=== PATIENT | male | born 1970 | race Caucasian/White ===

== ENCOUNTER 2020-03-19 16:26 | Emergency (ER) | payer MEDICAID, SELFPAY ==
[2020-03-19 16:45] VITALS: BP 162/89; PULSE 80; RESP 18; TEMP 37.7; O2SAT 98
--- NOTE | 2020-03-19 17:13 | ED.URI ---
HPI - URI/Sore Throat General Chief Complaint: Upper Respiratory Infection Stated Complaint: possible sinus infection Time Seen by Provider: 03/19/20 17:05 Source: patient and RN notes reviewed Mode of arrival: ambulatory Limitations: no limitations History of Present Illness HPI Narrative: 50-year-old male who presents to [facility] care accompanied by due to patient's hearing impairment with complaints of sore throat since Tuesday evening. Patient also states some discomfort to his right ear and extreme fatigue with some feeling of being feverish last night but did not take his temperature. Patient states that he had a negative COVID test one month ago. MD elicited complaint: sore throat and other (right ear pain) Pertinent past history: other (bronchitis) Onset (ago): day(s) (2) Consistency: constant Severity: moderate Pain scale (0-10): 5 Description of mucous: clear Able to tolerate fluids by mouth: Yes Exacerbating factors: swallowing Relieving factors: other (tramadol helps) Associated symptoms: fever, ear pain and other (fatigue) Treatments prior to arrival: other (tramadol for pain) Related Data Home Medications Medication Instructions Recorded Confirmed albuterol sulfate [ProAir HFA] 2 puff INHALATION QID PRN 03/19/20 03/19/20 meloxicam 7.5 mg PO DAILY 03/19/20 03/19/20 omeprazole 40 mg PO DAILY 03/19/20 03/19/20 ranitidine HCl 150 mg PO BID 03/19/20 03/19/20 tramadol 50 mg PO TID 03/19/20 03/19/20 Allergies Allergy/AdvReac Type Severity Reaction Status Date / Time banana Allergy Anaphylaxis Verified 03/19/20 16:57 morphine Allergy Swelling Verified 03/19/20 16:57 Review of Systems Review of Systems: Narrative: CONSTITUTIONAL: Positive fever, chills, or sweats. EYES: Denies visual changes, redness, or discharge. ENT positive rhinorrhea, nasal congestion, sore throat, right otalgia. CARDIOVASCULAR: Denies chest pain, palpitations, or edema. RESPIRATORY: Denies cough or dyspnea. GASTROINTESTINAL: Denies abdominal pain, nausea, vomiting, or diarrhea. GENITOURINARY: Denies dysuria or hematuria. SKIN: Denies rash or itching. MUSCULOSKELETAL: Denies back pain, joint pain, or myalgia. NEUROLOGIC: Denies headache, numbness, or weakness. PSYCHIATRIC: Denies anxiety or depression. All systems reviewed & are unremarkable except as noted in HPI and below PMFSH Past Medical History Medical History (Updated 03/19/20 @ 18:28 by Loren Stauffer NP) Bronchitis non alcoholic Cirrhosis of liver GERD (gastroesophageal reflux disease) Surgical History Surgical History (Updated 03/19/20 @ 17:21 by Loren Stauffer NP) History of cholecystectomy History of tonsillectomy Social History Social History (Updated 03/19/20 @ 18:27 by Loren Stauffer NP) Smoking status: Never smoker Alcohol intake: never Substance use: never Living arrangements: with family Gender identity (if verbalized by the patient): Male Comments At time of signature, agree with nursing past medical, surgical, social history. There is no relevant family history pertinent to the presenting complaint Exam Narrative: Exam Narrative: GENERAL: Well-appearing, well-nourished, and in no acute distress. HEAD: Normocephalic, atraumatic. EYES: PERRLA and EOMI. ENT: Nares red, clear rhinorrhea no epistaxis. Mucous membranes moist.TM's normal with good light reflex, throat, red swollen,uvula red and swollen with some post nasal drainage noted NECK: Supple. lymphadenopathy CHEST: Clear to auscultation. No respiratory distress.SAO2 98% on room air HEART: Regular rate and rhythm. No murmur heard. Normal peripheral pulses. ABDOMEN: Soft, nontender, nondistended, normal active bowel sounds. EXTREMITIES: Normal range of motion. No edema. SKIN: Warm, dry, no rash. NEURO: No focal deficits. Alert and oriented x3. Course Vital Signs Vital signs: Vital Signs Temperature 37.7 C H 03/19/20 16:45 Pulse Rate 80 03/19/20 16:45 Respira
== END 2020-03-19 17:37 | disposition home or self-care (01) ==
PROVIDERS: Emergency Provider Registered Nurse
DX: J02.0 Streptococcal pharyngitis (principal); Z20.828 Contact with and (suspected) exposure to other viral communicable diseases; K21.9 Gastro-esophageal reflux disease without esophagitis; K74.60 Unspecified cirrhosis of liver
CPT/HCPCS: 87804; 87880; 99213; G0463

== ENCOUNTER 2024-06-30 08:17 | Emergency (ER) | payer MEDICARE, SELFPAY ==
--- OUTSIDE RECORDS SUMMARY | 2024-06-30 08:22 | XMS_ITS | Clinical Summary ---
Author Organization [facility] Address [address] [place] [address] Phone Care Team Providers Care Sheriff'S Sergeant Name Role Phone Renzo Mishra MD Primary Care Provider [phone] Allergies Active Allergy Reactions Criticality Noted Date Comments Morphine Swelling 09/23/2016 Medications furosemide (LASIX) 20 MG Tablet Take 20 mg by mouth daily. Active meloxicam (MOBIC) 7.5 MG Tablet Take 1 Tab by mouth daily. 10 Tab 3 09/23/2016 Active Social History Tobacco Use Types Packs/Day Years Used Date Smoking Tobacco: Never Alcohol Use Standard Drinks/Week Comments No 0 (1 standard drink = 0.6 oz pur e alcohol) Sex and Gender Information Value Date Recorded Sex Assigned at Not on file Legal Sex Male 7:51 PM CDT Gender Identity Not on file Sexual Orientation Not on file Last Filed Vital Signs Vital Sign Reading Time Taken Comments Blood Pressure 144/93 09/23/2016 7:12 PM CDT Pulse 75 09/23/2016 7:12 PM CDT Temperature 36.6 C (97.8 F) 09/23/2016 7:12 PM CDT Respiratory Rate 18 09/23/2016 7:12 PM CDT Oxygen Saturation 98% 09/23/2016 7:12 PM CDT Inhaled Oxygen Concentration - - Weight 144.2 kg (318 lb) 09/23/2016 7:12 PM CDT Height 170.2 cm (5' 7 ) 09/23/2016 7:12 PM CDT Body Mass Index 49.81 09/23/2016 7:12 PM CDT Plan of Treatment Health Maintenance Due Date Last Done Comments Hepatitis C Virus (HCV) Screening 1970 TdaP Immunization 1969 Hepatitis B Immunization (3 of 3 - 19+ 3-dose series) 09/01/2011 05/20/2011, 03/02/2011 Colonoscopy 2014 Colorectal Cancer Screening 09/24/2016 Cologuard 2019 Immunochemical Fecal Occult Blood 2019 09/23/2016 Pneumococcal Immunization (5 0+ years) (1 of 1 - PCV) 2019 Zoster Immunization (1 of 2) 2019 Influenza Immunization (#1) 2024 SARS-COV-2 Immunization (3 - 2023- season) 2024 08/23/2020, 07/26/2020 PSA Discussion 01/29/2024 Respiratory Syncytial Virus (RSV) Immunization (Adult) (1 - 1-dose 75+ series) 01/29/2044 Meningococcal Immunization (ACWY) Aged Out No longer eligible b ased on patient's age to complete this topic Pneumococcal Immunization Combined Aged Out No longer eligible b ased on patient's age to complete this topic Rotavirus Immunization Aged Out No lo nger eligible based on patient's age to complete this topic Procedures Procedure Name Priority Date/Time Associated Diagnosis Comments STOOL, OCCULT BLOOD, DIAGNOSTIC, VIA GUAIAC STAT 09/23/2016 10:00 PM CDT from Last 3 Months or Most Recently Relevant to Health Maintenance Results * Stool, Occult Blood, Diagnostic (09/23/2016 10:00 PM CDT) OCCULT BLOOD DIAG, GI BLEED Negative Negative 09/23/2016 10:17 PM CDT [facility] Stool specimen (specimen) STOOL SPECIMEN / Unknown Non-Phlebotomy Collection / Unknown 09/23/2016 10:00 PM CDT 09/23/2016 10:10 PM CDT us Herman Marino MD BODY FLUIDS & STOOLS ORDERABLES Final Result [facility] [address] [place] [address] from Last 3 Months or Most Recently Relevant to Health Maintenance Insurance MEDICAID [employer] [facility] Care Teams Sheriff'S Sergeant Relationship Specialty Start Date End Date Renzo Mishra MD [address] [place] [id number] PCP - General Family Medicine 09/23/16
--- OUTSIDE RECORDS SUMMARY | 2024-06-30 08:22 | XMS_ITS | Encounter Summary ---
Author Organization [facility] Address [address] [place] [address] Care Team Providers Care Transport Driver Name Role Phone Renzo Mishra MD Primary Care Provider [phone] Reason for Visit * Reason Onset Date Comments Pre-op Instructions 08/11/2021 Encounter Details Date Type Department Care Team (Late st Contact Info) Description 08/11/2021 Patient Outreach [facility] [address] [place] [id number] Samra Garcia RN Pre-op Instructions Social History Tobacco Use Types Packs/Day Years Used Date Smoking Tobacco: Never Smokeless Tobacco: Never Alcohol Use Standard Drinks/Week Comments Not Currently 0 (1 standard drink = 0.6 oz pur e alcohol) rare, 1-2 occasions/year Sex and Gender Information Value Date Recorded Sex Assigned at Not on file Gender Identity Not on file Sexual Orientation Not on file documented as of this encounter Plan of Treatment Upcoming Encounters Date Type Department Care Team (Late Contact Info) Description 08/24/2024 9:30 AM CDT Office Visit [facility] [address] [facility] [place] [phone] Carrie Milner PA-C [address] [facility] [place] [phone] 10/15/2024 8:00 AM CDT Office Visit [facility] [address] [facility] [place] [address] Harish Pedro MD [address] [place] [address] [place] [address] documented as of this encounter Goals Goal Patient Goal Type Associated Problems Recent Progress Patient-Stated? Author Medication Management General On track( 024 9:26 AM HOME HEALTH OUTREACH COORDINATOR) Modesto Badillo, RN Note: Expected end date: Interventions: Take all medications as prescribed Let your doctor know right away about any changes in your medications Make sure to request a refill of your medication at least one week prior to your last dose documented as of this encounter Visit Diagnoses Not on filedocumented in this encounter Care Teams Transport Driver Relationship Specialty Start Date End Date Renzo Mishra MD [address] [place] [phone] PCP - General 02/12/19 documented as of this encounter
--- OUTSIDE RECORDS SUMMARY | 2024-06-30 08:22 | XMS_ITS | Clinical Summary ---
Author Organization [facility] Address [address] [place] [address] Care Team Providers Care Die Storage Clerk Name Role Phone Renzo Mishra MD Primary Care Provider [phone] Allergies Active Allergy Reactions Criticality Noted Date Comments Banana Other (See comments) High Reaction: Anaphylaxis, Morphine Other (See comments) High Reaction: Anaphylaxis, Medications doxycycline (VIBRAMYCIN) 100 mg capsule Take 1 tablet/capsule (100 mg total) by mouth 2 (two) times a day. 20 capsule 8 Active cyclobenzaprine (FLEXERIL) 10 mg tablet Take 1 tablet (10 mg total) by mouth nightly Active hydroCHLOROthiaz neema (HYDRODIURIL) 12.5 mg tabletIndication s:patient states taking med 3-4 days per week Take 1 tablet (12.5 mg total) by mouth daily Active aspirin 81 mg chewable tablet Take 81 mg by mouth daily Active fluticasone propionate (FLONASE) 50 mcg/actuation nasal spray Fluticasone Propionate 50 MCG/ACT Nasal Suspension QTY: 3 inhaler Days: 90 Refills: 1 Written: 11/27/19 Patient Instructions: 2 sprays each nostril once daily 0 Active nadoloL (CORGARD) 20 mg tablet Take 1 tablet (20 mg total) by mouth daily 0 Active omeprazole (PriLOSEC) 40 mg capsule 40 mg daily 9 Active loratadine (CLARITIN) 10 mg tablet daily 0 Active meloxicam (MOBIC) 15 mg tablet TK 1 T PO D 0 Active raNITIdine (ZANTAC) 150 mg tablet 2 times daily 9 Active tiZANidine (ZANAFLEX) 4 mg tablet TK 1 T PO BID PRN 0 Active traMADoL (ULTRAM) 50 mg tablet TK 1 T PO UP TO TID PRF PAIN 0 Active gabapentin (NEURONTIN) 300 mg capsule Take 1 capsule (300 mg total) by mouth nightly 90 capsule 1 0 Active Additional Information Patient not taking.Reported on 01/07/2024 lisinopril-hydro CHLOROthiazide (ZESTORETIC) 20-25 mg per tablet Take 1 tablet by mouth daily 1 Active GaviLyte-G 236-22.74-6.74 -5.86 gram solution 1 Active albuterol HFA (ProAir HFA) 90 mcg/actuation inhalerIndicatio ns:Bacterial upper respiratory infection Inhale 2 puffs every 4 (four) hours as needed for wheezing or shortness of breath 1 each 2 Active predniSONE (DELTASONE) 20 mg tabletIndication s:Rib pain Take 2 tablets (40 mg) by mouth daily 10 tablet 4 Active cyclobenzaprine (FLEXERIL) 10 mg tabletIndication s:Rib pain Take 1 tablet (10 mg total) by mouth 2 (two) times a day as needed (pleurisy) 20 tablet 4 Active Active Problems Problem Noted Date Diagnosed Date Herniation of intervertebral disc 08/01/2019 Overview (12/24/2019): Note: Unchanged Stenosis of lumbosacral spine 12/21/2018 Overview (12/24/2019): Note: Unchanged Persistent headaches 02/16/2018 Allergic rhinitis due to pollen 10/16/2015 Overview (12/24/2019): Note: Unchanged Carpal tunnel syndrome 10/16/2015 Overview (12/24/2019): Note: Unchanged Cervical radiculopathy 10/16/2015 Overview (12/24/2019): Note: Unchanged Gastroesophageal reflux disease without esophagi tis 10/16/2015 Overview (12/24/2019): Note: Unchanged Lumbago 10/16/2015 Overview (12/24/2019): Note: Unchanged Nonalcoholic steatohepatitis 10/16/2015 Overview (12/24/2019): Note: Unchanged Pure hypercholesterolemia 10/16/2015 Overview (12/24/2019): Note: Unchanged Esophageal varices 05/06/2015 Overview (12/24/2019): 04/23/15 EGD: small esophageal varices, mild PHG 05/22/19 EGD: moderate varices, moderate PHG --> nadolol 20 mg/d started Liver cirrhosis secondary to ORTIZ (CMS/HCC) 12/08 Overview (12/24/2019): 06/19/09 liver biopsy (wedge bx during [facility], read here): lots of fibrosis but subcapsular; 40% steatosis, no ballooning or MDBs; inadequate specimen 08/22/09 CT: purged from MT 08/22/09 EGD: no varices 11/06/10 CT: lobular surface, no focal lesions, patent vessels, no ascites 12/14/11 EGD: no varices, mild PHG/erythema, bx negative for H pylori 10/10/12 EGD: no varices 04/23/15 CT: nodular liver, no focal lesions, patent vessels, no ascites 04/21/17 CT: shrunken nodular liver, no change in 1 cm caudate lobe lesion seen in 2010, no other focal lesions mcm 05/22/19 CT: nodular liver, no change in lesion seen in 2010, no other focal lesions, patent vessels, no ascites mcm Colon adenomas 07/27/2013 Overview (12/24/2019): Strong FH colon cancer (sister and mother age < 50). Needs 2 day prep. 08/22/09 colonoscopy: tubular adenoma removed from cecum 07/27/13 colonoscopy: sessile serrated polyp removed; poor prep, repeat in 6 months recommended 04/23/15 colonoscopy: sessile serrated polyp removed from rectum. Poor prep again. Repeat in 1 yr. 04/21/17 colonoscopy: multiple small polyps removed, no adenomas 05/22/19 colonoscopy: poor prep, multiple small descending colon SSA and hyperplastic polyps, repeat in 1 year. mcm Hypertension 11/22/2011 Benign essential hypertension 09/07/2010 Overview (12/24/2019): Note: Unchanged Elevation of level of transa minase and lactic acid dehydrogenase (LDH) 09/07/2010 Overview (12/24/2019): Note: Unchanged Obesity 09/07/2010 Overview (12/24/2019): Note: Unchanged Surgical History Surgery Date Site/Laterality Comments CHOLECYSTECTOMY Medical History Medical History Date Comments Cholecystitis GERD (gastroesophageal reflux disease) Hypertension Cirrhosis (HCC) Family History Medical History Relation Name Comments Heart attack Father Heart disease Father Heart failure Father Cancer Mother Heart attack Mother Heart disease Mother Heart failure Mother Cancer Sister Relation Name Status Comments Father Mother Sister Social History Tobacco Use Types Packs/Day Years Used Date Smoking Tobacco: Never Smokeless Tobacco: Never Tobacco Cessation:Counseling Given: Not Answered Alcohol Use Standard Drinks/Week Comments Yes 0 (1 standard drink = 0.6 oz pur e alcohol) social drinker Personal Safety Answer Date Recorded Getting School Help Needed Not on file 07/03 Sex and Gender Information Value Date Recorded Sex Assigned at Not on file Legal Sex Male 4:35 PM CLINICAL PHARMACY MANAGER Gender Identity Not on file Sexual Orientation Not on file Obstetrics History Last Filed Vital Signs Vital Sign Reading Time Taken Comments Blood Pressure 132/78 01/07/2024 10:03 AM CDT Pulse 69 01/07/2024 10:03 AM CDT Temperature 36.7 C (98 F) 01/07/2024 10:03 AM CDT Respiratory Rate 20 01/07/2024 10:0 3 AM CDT Oxygen Saturation 98% 01/07/2024 10: 03 AM CDT Inhaled Oxygen Concentration - - Weight 148.9 kg (328 lb 4.8 oz) 024 10:03 AM CDT Height 170.2 cm (5' 7 ) 01/14/2022 5:22 PM CDT Body Mass Index 51.42 01/14/2022 5:22 PM CDT Plan of Treatment Health Maintenance Due Date Last Done Comments Colon Cancer Screening-Colonoscopy 1969 Depression Screening 1969 Hepatitis C Screening 1969 Prostate Cancer Screening-PSA 1969 DTaP/Tdap/Td Vaccine (1 - Tdap) 01/29/1980 Regular Well Visit/Exam 18-64 1987 Pneumococcal vaccine <65 (1 of 2 - PCV) 01/29/1988 Zoster Vaccine (1 of 2) 2019 Covid-19 Vaccine (3 - season) 2024, 07/26/2020 Influenza Vaccine (#1) 2024 05/20/2010 Insurance [facility] MEDICARE MEDICARE MEDICARE Care Teams Die Storage Clerk Relationship Specialty Start Date End Date Renzo Mishra MD PCP - General Family Medicine 12/21/17
--- OUTSIDE RECORDS SUMMARY | 2024-06-30 08:22 | XMS_ITS | Clinical Summary ---
Author Organization [facility] Address [address] [place] [address] Care Team Providers Care Blast Furnace Supervisor Name Role Phone Renzo Mishra MD Primary Care Provider [phone] [facility],non-owned Affiliates and Associated Physician Practices is amultiple site organization consisting of ambulatory clinics and hospital sitesin [place], [place], [place] and [place]. This disclosure is being madepursuant to the Care Everywhere program and may not contain all information available regarding this patient. Last updated 18.[facility] Allergies Active Allergy Reactions Criticality Noted Date Comments Banana Other Low 11/22/2011 Ab Morphine Skin Reactions,Other Medium 11/22/2011 Edema Medications * Be aware that medications may not be up to date on this document. Alwaysverify current medications with the patient. Medication Sig Dispensed Refills Start Date End Date Status albuterol HFA (PROVENTIL;VENTOL IN;PROAIR) 108 (90 Base) MCG/ACT inhaler Inhale 2 (two) puffs by mouth once daily as needed 08/27/2017 Active aspirin (ASPIRIN) 81 MG chew tablet Take 1 (one) tablet by mouth once daily Active multivitamin daily tablet Take 1 (one) tablet by mouth daily with food Active loratadine (CLARITIN) 10 MG tablet Take 1 (one) tablet by mouth once daily 02/04/2021 Active Other Liver Aid Active nadolol (Corgard) 20 MG tablet Take 1 (one) tablet by mouth once daily 30 tablet 11 10/17/2023 Active Additional Information Patient not taking.Reported on 04/27/2024 omeprazole (PriLOSEC) 20 MG capsule Take 1 (one) capsule by mouth once daily 30 capsule 11 10/17/2023 Active rifAXIMin (Xifaxan) 550 MG tablet Take 1 (one) tablet by mouth 2 times daily 30 tablet 3 11/04/2023 Active Additional Information Patient not taking.Reported on 04/27/2024 lactulose (Chronulac) 10 GM/15ML solution Take 30 mL by mouth 3 times daily Titrate for 2-4 bowel movements per day 2700 mL 11 11/14/2023 Active spironolactone (Aldactone) 25 MG tablet TAKE 2 TABLETS BY MOUTH ONCE DAILY 180 tablet 1 01/16/2024 Active gabapentin (Neurontin) 300 MG capsule TAKE ONE CAPSULE BY MOUTH ONCE DAILY 30 capsule 3 11/04/2023 11/03/2024 Active lisinopril (Prinivil; Zestril) 20 MG tablet Take 1 (one) tablet by mouth once daily 03/12/2024 Active traMADol (Ultram) 50 MG tablet Take 1 (one) tablet by mouth 3 times daily as needed for Pain 03/29/2024 Active Active Problems Problem Noted Date Diagnosed Date Hepatic encephalopathy 11/01/2023 Overview (11/04/2023): New onset October 2024, admitted with confusion, lactulose and rifaximin started Obstructive sleep apnea syndrome 05/16/2020 Overview (11/04/2023): Note: Unchanged - CPAP Stenosis of lumbosacral spine 12/21/2018 Overview (02/16/2021): Note: Unchanged GERD (gastroesophageal reflux disease) 8 Overview (05/22/2019): Overview: 10/10/13 EGD: [place] class A GERD 05/22/19 EGD: no GERD changes on omeprazole 40 qd Persistent headaches 02/16/2018 Cervical radiculopathy 10/16/2015 Overview (02/16/2021): Note: Unchanged Hypercholesterolemia 10/16/2015 Esophageal varices 05/06/2015 Overview (05/22/2019): Overview: 04/23/15 EGD: small esophageal varices, mild PHG 05/22/19 EGD: moderate varices, moderate PHG --> nadolol 20 mg/d started Obesity 12/26/2013 Liver cirrhosis secondary to MASH 12/26/2013 Overview (11/29/2023): 06/19/09 liver biopsy (wedge bx during [place], [...] seen in 2010, no other focal lesions [facility] 05/22/19 CT: nodular liver, no change in lesion seen in 2010, no other focal lesions, patent vessels, no ascites mcm 08/18/21 CT: shrunken nodular liver, no focal lesions, patent vessels, no ascites mcm 10/13/22 [place] ([place]): steatosis, no mention of focal lesions or ascites 11/28/23 CT: shrunken nodular liver, no focal lesions, patent vessels, no ascites mcm Colon adenomas 07/27/2013 Overview (08/21/2021): Strong FH colon cancer (sister and mother [...] and hyperplastic polyps, repeat in 1 year. [facility] 08/18/21 colonoscopy: no adenomas, repeat in 3-5 years Hypertension 11/22/2011 Encounters Date Type Department Care Team Description 05/31/2024 Travel 04/27/2024 10:50 AM CAUSTIC STRENGTH INSPECTOR - 04/27/2024 11:59 PM CAUSTIC STRENGTH INSPECTOR Hospital Encounter [facility] [address] [place] [address] Discharge Disposition: Home or Self Care 04/27/2024 9:30 AM CAUSTIC STRENGTH INSPECTOR Office Visit [facility] - GI [address] [facility] [facility] [place] [address] Jonny Cardona III, MD McNiell, Allison PA-C Class 3 severe obesity due to excess calories with serious comorbidity and body mass index (BMI) of 50.0 to 59.9 in adult (HCC) (Primary Dx); Hypothyroidism, unspecified type; Screening for diabetes mellitus; Liver cirrhosis secondary to MASH; Gastroesophageal reflux disease without esophagitis; Stenosis of lumbosacral spine 04/27/2024 Travel from Last 3 Months Immunizations Name Administration Dates Next Due INFLUENZA VACCINE, TRIV. (AF LURIA, FLUZONE TRIVALENT; 6MO+) (IIV3) 05/20/2010 Family History Medical History Relation Name Comments CAD (Coronary Artery Disease) Father Diabetes Father dm; Status: Dec eased High Cholesterol Father Kidney Disease Father Asthma Mother CAD (Coronary Artery Disease) Mother COPD - Chronic Obstructive P ulmonary Disease Mother Cancer Mother Colon Cancer - Colon Mother Status: Alive Diabetes Mother High Cholesterol Mother Hypertension Mother Cancer - Other Sister 1 High Cholesterol Sister 1 Hypertension Sister 1 Status: Alive Glaucoma Sister 2 Other - Hepatic/Liver Sister 2 Arthritis Sister 3 Rheumatoid Cancer Sister 4 Unsure primary site--wide spread mets Relation Name Status Comments Father Mother Sister 1 Sister 2 Sister 3 Sister 4 Social History Tobacco Use Types Packs/Day Years Used Date Smoking Tobacco: Never Smokeless Tobacco: Never Tobacco Cessation:Counseling Given: Yes Alcohol Use Standard Drinks/Week Comments Not Currently 0 (1 standard drink = 0.6 oz pur e alcohol) AUDIT-C Answer Date Recorded Q1: How often do you have a drink containing alcohol? Never 11/03/2023 Q2: How many drinks containi ng alcohol do you have on a typical day when you are drinking? Patient does not drink Q3: How often do you have si x or more drinks on one occasion? Never 11/03/2023 Overall Financial Resource Strain (CARDIA) Answe r Date Recorded How hard is it for you to pa y for the very basics like food, housing, medical care, and heating? Not very hard 11/03/2023 [facility] - Occupational Stress Questionnaire Answer Date Recorded Do you feel stress - tense, restless, nervous, or anxious, or unable to sleep at night because your mind is troubled all the time - these days? Not at all 11/03/2023 Hunger Vital Sign Answer Date Recorded Within the past 12 months, y ou worried that your food would run out before you got the money to buy more. Never true 11/03/19 24 Within the past 12 months, t he food you bought just didn't last and you didn't have money to get more. Never true 11/03/2023 PRAPARE - Transportation Answer Date Re corded In the past 12 months, has l ack of transportation kept you from medical appointments or from getting medications? No 10/08 In the past 12 months, has l ack of transportation kept you from meetings, work, or from getting things needed for daily living? No 11/03/2023 Housing Stability Vital Sign Answer Kevin e Recorded In the last 12 months, was t here a time when you were not able to pay the mortgage or rent on time? No 11/03/2023 In the last 12 months, how many places have you lived? 1 11/03/2023 In the last 12 months, was t here a time when you did not have a steady place to sleep or slept in a custodial (including now)? No 11/03/2023 Sex and Gender Information Value Date Recorded Sex Assigned at Not on file Gender Identity Not on file Sexual Orientation Not on file Last Filed Vital Signs Vital Sign Reading Time Taken Comments Blood Pressure 148/75 04/27/2024 9:23 AM CAUSTIC STRENGTH INSPECTOR Pulse 77 04/27/2024 9:23 AM CAUSTIC STRENGTH INSPECTOR Temperature 37 C (98.6 F) 04/27/2024 9:23 AM CAUSTIC STRENGTH INSPECTOR Respiratory Rate 16 11/04/2023 11:37 AM CDT Oxygen Saturation 100% 04/27/2024 9:23 AM CAUSTIC STRENGTH INSPECTOR Inhaled Oxygen Concentration - - Weight 154.2 kg (340 lb) 04/27/2024 9:23 AM CAUSTIC STRENGTH INSPECTOR Height 167.6 cm (5' 6 ) 04/27/2024 9:23 AM CAUSTIC STRENGTH INSPECTOR Body Mass Index 54.88 04/27/2024 9:23 AM CAUSTIC STRENGTH INSPECTOR Plan of Treatment Upcoming Encounters Date Type Department Care Team (Late st Contact Info) Description 08/24/2024 9:30 AM CDT [facility] [address] [place] [phone] Carrie Milner PA-C [address] [facility] [place] [phone] 10/15/2024 8:00 AM CDT Office Visit [facility] - GI [address] [place] [phone] Harish Pedro MD [address] [facility] 2L [place] [address] Health Maintenance Due Date Last Done Comments COLOGUARD (AGES 45-75) - COLON CA SCREENING 1970 CT COLONOGRAPHY - COLON CA SCREENING 1970 FIT - COLON CA SCREENING 1970 FLEX SIG - COLON CA SCREENING 1970 MEDICARE AWV 12 MONTHS 1970 HIV SCREENING 01/29/1984 DTAP/TDAP/TD VACCINES (1 - Tdap) 01/29/1988 HEPATITIS B VACCINE (1 of 3 - 19+ 3-dose series) 01/29/1988 PNEUMOCOCCAL VACCINE 50+ (1 of 2 - PCV) 01/29/1988 ZOSTER VACCINE (1 of 2) 2019 COVID-19 VACCINE (3 - 2023- season) 2024 08/23/2020, 07/26/2020 INFLUENZA VACCINE (#1) 2024 05/20/2010 DEPRESSION SCREENING 05/09/2024 SCREENING FOR DIABETES 04/27/2027 , 11/28/2023, 11/04/2023, Additional history exists LIPID TESTING 04/27/2029 04/27/2024, 10/0 08/2018, 05/09/1998 COLON MONITORING 08/19/2031 08/18/2021, 04/2022, 05/22/2019, Additional history exists COLONOSCOPY - COLON CA SCREENING 08/19/2031 08/18/2021, 08/18/2021, 05/22/2019, Additional history exists Colorectal Cancer Screening 08/19/2031 HEPATITIS C SCREENING Completed 04/07/2015 HIB VACCINE Aged Out No longer eligi ble based on patient's age to complete this topic HPV VACCINE Aged Out No longer eligi ble based on patient's age to complete this topic MENINGOCOCCAL (Group B) VACCINE Aged Out No longer eligible based on patient's age to complete this topic MENINGOCOCCAL VACCINE Aged Out No raquel shanique eligible based on patient's age to complete this topic Goals Goal Patient Goal Type Associated Problems Recent Progress Patient-Stated? Author Medication Management General On track( 024 9:26 AM CAUSTIC STRENGTH INSPECTOR) No Modesto Jerez, RN Note: Expected end date: Interventions: Take all medications as prescribed Let your doctor know right away about any changes in your medications Make sure to request a refill of your medication at least one week prior to your last dose Procedures Procedure Name Priority Date/Time Associated Diagnosis Comments T4 FREE Routine 04/27/2024 12:04 PM CAUSTIC STRENGTH INSPECTOR Hypothyroidism, unspecified type TSH Routine 04/27/2024 12:04 PM CAUSTIC STRENGTH INSPECTOR Hypothyroidism, unspecified type LIPID PROFILE Routine 04/27/2024 12:04 PM CAUSTIC STRENGTH INSPECTOR Class 3 severe obesity due to excess calories with serious comorbidity and body mass index (BMI) of 50.0 to 59.9 in adult (HCC) HEMOGLOBIN A1C Routine 04/27/2024 12:04 PM CAUSTIC STRENGTH INSPECTOR Class 3 severe obesity due to excess calories with serious comorbidity and body mass index (BMI) of 50.0 to 59.9 in adult (HCC) Screening for diabetes mellitus ENDOSCOPY, COLON, SCREENING Routine 08/18/2021 11:37 AM CDT Colon adenomas HEPATITIS C ANTIBODY Routine 04/07/2015 3:28 PM CAUSTIC STRENGTH INSPECTOR from Last 3 Months or Most Recently Relevant to Health Maintenance Results * HEMOGLOBIN A1C (04/27/2024 12:04 PM CAUSTIC STRENGTH INSPECTOR) Hemoglobin A1c 4.3 <=5.6 % 04/27/2024 2:23 PM CAUSTIC STRENGTH INSPECTOR [facility] Estimated Average Glucose 77 mg/dL 04/27/2024 2:23 PM CAUSTIC STRENGTH INSPECTOR [facility] Comment: HbA1c Interpretation: Normal : < 5.7% Pre-diabetes: 5.7-6.4% Diabetes: Equal to or greater than 6.5% Test results diagnostic of diabetes should be repeated for confirmation. Treatment target values recommended by ADA and other clinical organizations should be used to evaluate metabolic control in patients. Reference: [place] Diabetes Association, Standards of Care in Diabetes -2020 In patients 70 years and older consider HbA1c target range of 7.0-7.5% (Reference: Hakeem Willett et al. JAMDA. 2012) The Sebia assay for the measurement of HbA1c is a National Glycohemoglobin Standardization Program (NGSP) certified method. Blood BLOOD SPECIMEN / Unknown Lab Venipuncture / Unknown 04/27/2024 12:04 PM CAUSTIC STRENGTH INSPECTOR 04/27/2024 12:53 PM CAUSTIC STRENGTH INSPECTOR Carrie Milner PA-C LAB - CHEMISTRY ORD ERABLES [address] [phone], [facility] [phone] * TSH (04/27/2024 12:04 PM CAUSTIC STRENGTH INSPECTOR) TSH 1.417 0.350 - 4.940 uIU/mL 04/27/2024 1:37 PM CAUSTIC STRENGTH INSPECTOR [facility] Blood BLOOD SPECIMEN / Unknown Lab Venipuncture / Unknown 04/27/2024 12:04 PM CAUSTIC STRENGTH INSPECTOR 04/27/2024 12:46 PM CAUSTIC STRENGTH INSPECTOR Carrie Milner PA-C LAB - CHEMISTRY ORD ERABLES [facility] [address] [place] [phone], [facility] [phone] * T4 FREE (04/27/2024 12:04 PM CAUSTIC STRENGTH INSPECTOR) T4 Free 0.9 0.7 - 1.5 ng/dL 04/27/2024 1:37 PM [facility] Blood BLOOD SPECIMEN / Unknown Lab Venipuncture / Unknown 04/27/2024 12:04 PM CAUSTIC STRENGTH INSPECTOR 04/27/2024 12:46 PM CAUSTIC STRENGTH INSPECTOR Carrie Milner PA-C LAB - CHEMISTRY ORD ERABLES Performing Organization Address City/[facility]/ZIP Co de Phone Number [address] [address], [facility] [phone] * (ABNORMAL) LIPID PROFILE (04/27/2024 12:04 PM CAUSTIC STRENGTH INSPECTOR) Cholesterol Total 110 <200 mg/dL 04/27/2024 1:21 PM [facility] HDL 38(L) >40 mg/dL 04/27/2024 1:21 PM [facility] Comment: ATP III Classification of HDL Cholesterol: <40 mg/dL: Considered a major risk factor. >60 mg/dL: Considered a negative risk factor. LDL Calculated 54 <100 mg/dL 04/27/2024 1:21 PM [facility] Comment: ATP III Classification of LDL Cholesterol: <100 mg/dL: Optimal 100 - 129 mg/dL: Near Optimal/Above Optimal 130 - 159 mg/dL: Borderline High 160 - 189 mg/dL: High >190 mg/dL: Very High Triglycerides 91 <150 mg/dL 04/27/2024 1:21 PM [facility] Comment: ATP III Classification of Triglycerides: <150 mg/dL: Normal 150 - 199 mg/dL: Borderline High 200 - 400 mg/dL: High >500 mg/dL: Very High Blood BLOOD SPECIMEN / Unknown Lab Venipuncture / Unknown 04/27/2024 12:04 PM CAUSTIC STRENGTH INSPECTOR 04/27/2024 12:46 PM CAUSTIC STRENGTH INSPECTOR Carrie Milner PA-C LAB - CHEMISTRY ORD ERABLES [facility] [address] [place] [address], [facility] [phone] * ENDOSCOPY, COLON, SCREENING (08/18/2021 11:37 AM CDT) Report Endoscopy POC Endoscopy Department Report _ Patient Name: Justin De La Cruz Procedure Date: 08/18/2021 11:37 AM Date of : 1970 Classification: Outpatient Gender: Male Ethnicity: Not or Race: White _ Providers: Harish Ansari MD, Mary Whitley (Fellow) Referring MD: Renzo Mishra MD (Referring MD) Procedure: Colonoscopy Indications: High risk colon cancer surveillance: Personal history of colonic polyps Medications: Monitored Anesthesia Care Description of Procedure: Pre-Anesthesia Assessment: - Prior to the procedure, a History and Physical was performed, and patient medications and allergies were reviewed. The patient's tolerance of previous anesthesia was also reviewed. The risks and benefits of the procedure and the sedation options and risks were discussed with the patient. All questions were answered, and informed consent was obtained. Prior Anticoagulants: The patient has taken no previous anticoagulant or antiplatelet agents. ASA Grade Assessment: II - A patient with mild systemic disease. After reviewing the risks and benefits, the patient was deemed in satisfactory condition to undergo the procedure. After I obtained informed consent, the scope was passed under direct vision. Throughout the procedure, the patient's blood pressure, pulse, and oxygen saturations were monitored continuously. The [id number] was introduced through the anus and advanced to the terminal ileum. The colonoscopy was performed without difficulty. The patient tolerated the procedure well. The quality of the bowel preparation was fair. The terminal ileum, ileocecal valve, appendiceal orifice, and rectum were photographed. Findings: The perianal examination was normal. A 5 mm polyp was found in the ascending colon. The polyp was semi-pedunculated . The polyp was removed with a cold snare. Resection and retrieval were complete. A 5 mm polyp was found in the recto-sigmoid colon. The polyp was sessile. The polyp was removed with a cold snare. Resection and retrieval were complete. Multiple sessile, hyperrplasticc looking, non-bleeding polyps were found in the recto-sigmoid colon. The polyps were small in size. The terminal ileum appeared normal. Estimated Blood Loss: Estimated blood loss: none. Complications: No immediate complications. Impression: - Preparation of the colon was fair. - One 5 mm polyp in the ascending colon, removed with a cold snare. Resected and retrieved. - One 5 mm polyp at the recto-sigmoid colon, removed with a cold snare. Resected and retrieved. - Multiple small, hyperplastic looking, non-bleeding polyps at the recto-sigmoid colon. - The examined portion of the ileum was normal. Recommendation: - Written discharge instructions were provided to the patient. - The signs and symptoms of potential delayed complications were discussed with the patient. - Patient has a contact number available for emergencies. - Return to normal activities tomorrow. - Resume previous diet. - Repeat colonoscopy in 5 years for surveillance. - Continue present medications. Attending Participation: I was present and participated during the entire procedure, including non-cronin portions. Procedure Code(s): --- Professional --- 06957, Colonoscopy, flexible; with removal of tumor(s), polyp(s), or other lesion(s) by snare technique Diagnosis Code(s): --- Professional --- K63.5, Polyp of colon Z86.010, Personal history of colonic polyps CPT copyright 2019 [employer]. All rights reserved. The codes documented in this report are preliminary and upon icd 9 coder review may be revised to meet current compliance requirements. Harish Ansari MD 08/18/2021 1:11:48 PM This report has been signed electronically. Note Initiated On: 08/18/2021 11:37 AM Number of Addenda: [address] 08/18/2021 11:3 7 AM CDT Harish Pedro MD GI PROCEDU RE ORDERABLES [facility] [place] * HEPATITIS C ANTIBODY (04/07/2015 3:28 PM CAUSTIC STRENGTH INSPECTOR) Hepatitis C Antibody Non-react [facility] Comment: Hepatitis C Antibody screen indicates no serologic evidence of past or current infection with Hepatitis C Virus. Patients with unexplained liver disease who are immunocompromised or suspected of having acute Hepatitis C infection may benefit from Nucleic Acid Test (JOCY) for Hepatitis C Viral RNA to confirm Hepatitis C status. Blood specimen (specimen) BLOOD SPECIMEN / Unknown 04/07/2015 3:28 PM CAUSTIC STRENGTH INSPECTOR 04/07/2015 3:49 PM CAUSTIC STRENGTH INSPECTOR Harish Pedro MD LAB - CHEM ISTRY ORDERABLES [facility] [address] [phone] from Last 3 Months or Most Recently Relevant to Health Maintenance Advance Directives * Full Code (Latest Code Status on File) Date Activated Date Inactivated Comments 11/03/2023 5:17 PM 11/04/2023 3:09 PM Care Teams Blast Furnace Supervisor Relationship Specialty Start Date End Date Renzo Mishra MD [address] [place] [address] [phone] PCP - General 02/12/19
--- OUTSIDE RECORDS SUMMARY | 2024-06-30 08:22 | XMS_ITS | Referral Summary ---
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
--- OUTSIDE RECORDS SUMMARY | 2024-06-30 08:22 | XMS_ITS | Referral Summary ---
Author Organization [facility] Address [address] [place] [address] Care Team Providers Care Cream Hauler Name Role Phone Renzo Mishra MD Primary Care Provider [phone] Source Comments [facility],non-owned Affiliates and Associated Physician Practices is amultiple site organization consisting of ambulatory clinics and hospital sitesin [place], [place], [place] and [place]. This disclosure is being madepursuant to the Care Everywhere program and may not contain all information available regarding this patient. Last updated 18.[facility] Encounters Date Type Department Care Team Description 05/31/2024 Travel 04/27/2024 10:50 AM ENTERPRISE SERVICES MANAGER - 04/27/2024 11:59 PM ENTERPRISE SERVICES MANAGER Hospital Encounter [facility] [address] [place] [phone] Discharge Disposition: Home or Self Care 04/27/2024 Travel 04/27/2024 9:30 AM ENTERPRISE SERVICES MANAGER Office Visit [facility] - [place] [address] [facility] [address] [facility] [place] [phone] Jonny Cardona III, MD [place], Allison, BANDAR-C Class 3 severe obesity due to excess calories with serious comorbidity and body mass index (BMI) of 50.0 to 59.9 in adult (HCC) (Primary Dx); Hypothyroidism, unspecified type; Screening for diabetes mellitus; Liver cirrhosis secondary to MASH; Gastroesophageal reflux disease without esophagitis; Stenosis of lumbosacral spine from Last 3 Months Allergies Active Allergy Reactions Criticality Noted Date [...] patent vessels, no ascites mcm 10/13/22 [place] ([place]): steatosis, no mention of focal lesions or [...] hyperplastic polyps, repeat in 1 year. mcm 08/18/21 colonoscopy: no adenomas, repeat in 3-5 years Hypertension 11/22/2011 Immunizations Name Administration Dates Next Due INFLUENZA VACCINE, TRIV. (AF LURIA, FLUZONE TRIVALENT; 6MO+) (IIV3) 05/20/2010 Social History Tobacco Use Types Packs/Day Years [...] care, and heating? Not very hard 11/03/2023 [facility] [place] [facility] - Occupational Stress [...] place to sleep or slept in a senior care (including now)? No 11/03/2023 Sex and Gender Information Value Date Recorded Sex Assigned at Not on file Gender Identity Not on file Sexual Orientation Not on file Last Filed Vital Signs Vital Sign Reading Time Taken Comments Blood Pressure 148/75 04/27/2024 9:23 AM ENTERPRISE SERVICES MANAGER Pulse 77 04/27/2024 9:23 AM ENTERPRISE SERVICES MANAGER Temperature 37 C (98.6 F) 04/27/2024 9:23 AM ENTERPRISE SERVICES MANAGER Respiratory Rate 16 11/04/2023 11:37 AM CDT Oxygen Saturation 100% 04/27/2024 9:23 AM ENTERPRISE SERVICES MANAGER Inhaled Oxygen Concentration - - Weight 154.2 kg (340 lb) 04/27/2024 9:23 AM ENTERPRISE SERVICES MANAGER Height 167.6 cm (5' 6 ) 04/27/2024 9:23 AM ENTERPRISE SERVICES MANAGER Body Mass Index 54.88 04/27/2024 9:23 AM ENTERPRISE SERVICES MANAGER Functional Status Functional Status Response Date of Assess ment Is person deaf or have serious hearing difficult y? Yes 11/03/2023 Is person blind or have serious difficulty seein g? No 11/03/2023 Does person have serious dif ficulty walking/climbing stairs? No 11/03/2023 Does person have difficulty dressing/bathing? Ye s 11/03/2023 Does person have difficulty doing errands alone? Yes 11/03/2023 Cognitive Status Response Date of Assessm ent Does person have difficulty concentrating/remembering/making decisions? Yes 11/03/2023 Plan of Treatment Upcoming Encounters Date Type Department Care Team (Late st Contact Info) Description 08/24/2024 9:30 AM CDT Office Visit [facility] - [place] [address] [place] [phone] Carrie Milner PA-C [address] [facility] [place] [phone] 10/15/2024 8:00 AM CDT Office Visit [facility] - [facility] [address] [place] [phone] Harish Pedro MD [facility] DIV [place] [address] Goals Goal Patient Goal Type Associated Problems Recent Progress Patient-Stated? Author Medication Management General On track( 024 9:26 AM ENTERPRISE SERVICES MANAGER) Modesto Badillo, RN Note: Expected end date: Interventions: Take all medications as prescribed Let your doctor know right away about any changes in your medications Make sure to request a refill of your medication at least one week prior to your last dose Procedures Procedure Name Priority Date/Time Associated Diagnosis Comments T4 FREE Routine 04/27/2024 12:04 PM ENTERPRISE SERVICES MANAGER Hypothyroidism, unspecified type TSH Routine 04/27/2024 12:04 PM ENTERPRISE SERVICES MANAGER Hypothyroidism, unspecified type LIPID PROFILE Routine 04/27/2024 12:04 PM ENTERPRISE SERVICES MANAGER Class 3 severe obesity due to excess calories with serious comorbidity and body mass index (BMI) of 50.0 to 59.9 in adult (HCC) HEMOGLOBIN A1C Routine 04/27/2024 12:04 PM ENTERPRISE SERVICES MANAGER Class 3 severe obesity due to excess calories with serious comorbidity and body mass index (BMI) of 50.0 to 59.9 in adult (HCC) Screening for diabetes mellitus ENDOSCOPY, COLON, SCREENING Routine 08/18/2021 11:37 AM CDT Colon adenomas HEPATITIS C ANTIBODY Routine 04/07/2015 3:28 PM ENTERPRISE SERVICES MANAGER from Last 3 Months or Most Recently Relevant to Health Maintenance Results * HEMOGLOBIN A1C (04/27/2024 12:04 PM ENTERPRISE SERVICES MANAGER) Hemoglobin A1c 4.3 <=5.6 % 04/27/2024 2:23 PM ENTERPRISE SERVICES MANAGER [facility] Estimated Average Glucose 77 mg/dL 04/27/2024 2:23 PM [facility] Comment: HbA1c Interpretation: Normal : < 5.7% Pre-diabetes: 5.7-6.4% Diabetes: Equal to or greater than 6.5% Test results diagnostic of diabetes should be repeated for confirmation. Treatment target values recommended by ADA and other clinical organizations should be used to evaluate metabolic control in patients. Reference: [employer], Standards of Care in Diabetes -2020 In patients 70 years and older consider HbA1c target range of 7.0-7.5% (Reference: Hakeem Willett et al. JAMDA. 2012) The Sebia assay for the measurement of HbA1c is a National Glycohemoglobin Standardization Program (NGSP) certified method. Blood BLOOD SPECIMEN / Unknown Lab Venipuncture / Unknown 04/27/2024 12:04 PM ENTERPRISE SERVICES MANAGER 04/27/2024 12:53 PM ENTERPRISE SERVICES MANAGER Carrie Milner PA-C LAB - CHEMISTRY ORD ERABLES [facility] [address] [place] [address], [facility] [phone] * TSH (04/27/2024 12:04 PM ENTERPRISE SERVICES MANAGER) Pathologist [facility] TSH 1.417 0.350 - 4.940 uIU/mL 04/27/2024 1:37 PM [facility] Blood BLOOD SPECIMEN / Unknown Lab Venipuncture / Unknown 04/27/2024 12:04 PM ENTERPRISE SERVICES MANAGER 04/27/2024 12:46 PM ENTERPRISE SERVICES MANAGER Carrie Milner PA-C LAB - CHEMISTRY ORD ERABLES [facility] [address] [place] [phone], [facility] [phone] * T4 FREE (04/27/2024 12:04 PM ENTERPRISE SERVICES MANAGER) [facility] T4 Free 0.9 0.7 - 1.5 ng/dL 04/27/2024 1:37 PM [facility] Blood BLOOD SPECIMEN / Unknown Lab Venipuncture / Unknown 04/27/2024 12:04 PM ENTERPRISE SERVICES MANAGER 04/27/2024 12:46 PM ENTERPRISE SERVICES MANAGER Carrie Milner PA-C LAB - CHEMISTRY ORD ERABLES [address] [phone], [facility] [phone] * (ABNORMAL) LIPID PROFILE (04/27/2024 12:04 PM ENTERPRISE SERVICES MANAGER) [facility] Cholesterol Total 110 <200 mg/dL 04/27/2024 1:21 PM [facility] HDL 38(L) >40 mg/dL 04/27/2024 1:21 PM [facility] Comment: ATP III Classification of HDL Cholesterol: <40 mg/dL: Considered a major risk factor. >60 mg/dL: Considered a negative risk factor. LDL Calculated 54 <100 mg/dL 04/27/2024 1:21 PM [facility] Comment: ATP III Classification of LDL Cholesterol: <100 mg/dL: Optimal 100 - 129 mg/dL: Near Optimal/Above Optimal 130 - 159 mg/dL: Borderline High 160 - 189 mg/dL: High >190 mg/dL: Very High Triglycerides 91 <150 mg/dL 04/27/2024 1:21 PM ENTERPRISE SERVICES MANAGER [facility] Comment: ATP III Classification of Triglycerides: <150 mg/dL: Normal 150 - 199 mg/dL: Borderline High 200 - 400 mg/dL: High >500 mg/dL: Very High Blood BLOOD SPECIMEN / Unknown Lab Venipuncture / Unknown 04/27/2024 12:04 PM ENTERPRISE SERVICES MANAGER 04/27/2024 12:46 PM ENTERPRISE SERVICES MANAGER Carrie Milner PA-C LAB - CHEMISTRY ORD ERABLES [address] [address], [facility] [phone] * ENDOSCOPY, COLON, SCREENING (08/18/2021 11:37 AM [...] and oxygen saturations were monitored continuously. The [id number] was introduced through the anus and advanced [...] non-cronin portions. Procedure Code(s): --- Professional --- 43310, Colonoscopy, flexible; with removal of tumor(s), polyp(s), or other lesion(s) by snare technique Diagnosis Code(s): --- Professional --- K63.5, Polyp of colon Z86.010, Personal history of colonic polyps CPT copyright 2019 [employer]. All rights reserved. The codes documented in this report are preliminary and upon lime sludge mixer review may be revised to meet current compliance requirements. Harish Ansari MD 08/18/2021 1:11:48 PM This report has been signed electronically. Note Initiated On: 08/18/2021 11:37 AM Number of Addenda: [address] 08/18/2021 11:3 7 AM CDT Harish Pedro MD GI PROCEDU RE ORDERABLES Performing Organization Address City/[facility] Co de Phone Number [facility] * HEPATITIS C ANTIBODY (04/07/2015 3:28 PM ENTERPRISE SERVICES MANAGER) Hepatitis C Antibody Non-react [facility] Comment: Hepatitis C Antibody screen indicates no serologic evidence of past or current infection with Hepatitis C Virus. Patients with unexplained liver disease who are immunocompromised or suspected of having acute Hepatitis C infection may benefit from Nucleic Acid Test (JOCY) for Hepatitis C Viral RNA to confirm Hepatitis C status. Blood specimen (specimen) BLOOD SPECIMEN / Unknown 04/07/2015 3:28 PM ENTERPRISE SERVICES MANAGER 04/07/2015 3:49 PM ENTERPRISE SERVICES MANAGER Harish Pedro MD LAB - CHEM ISTRY ORDERABLES Performing Organization Address City/[facility]/ZIP Co de Phone Number [facility] [address] [place] [address] from Last 3 Months or Most Recently Relevant to Health Maintenance Advance Directives * Full Code (Latest Code Status on File) Date Activated Date Inactivated Comments 11/03/2023 5:17 PM 11/04/2023 3:09 PM Care Teams Cream Hauler Relationship Specialty Start Date End Date Renzo Mishra MD [address] [place] [phone] PCP - General 02/12/19
--- OUTSIDE RECORDS SUMMARY | 2024-06-30 08:22 | XMS_ITS | Patient Health Summary ---
Author Organization [facility] Address [address] [place] [address] Care Team Providers Care Gis Engineer Name Role Phone Renzo Mishra MD Primary Care Provider [phone] Note from [facility],non-owned Affiliates and Associated Physician Practices is amultiple site organization consisting of ambulatory clinics and hospital sitesin [place], [place], [place] and [place]. This disclosure is being madepursuant to the Care Everywhere program and may not contain all information available regarding this patient. Last updated 18.[facility] Allergies * Banana(Other) -Low Criticality * Morphine(Skin Reactions,Other) -Medium Criticality Medications * Be aware that medications may not be up to date on this document. Always verify current medications with the patient. * albuterol HFA (PROVENTIL;VENTOLIN;PROAIR) 108 (90 Base) MCG/ACT inhaler (Started 08/27/2017) Inhale 2 (two) puffs by mouth once daily as needed * aspirin (ASPIRIN) 81 MG chew tablet Take 1 (one) tablet by mouth once daily * multivitamin daily tablet Take 1 (one) tablet by mouth daily with food * loratadine (CLARITIN) 10 MG tablet(Started 02/04/2021) Take 1 (one) tablet by mouth once daily * Other Liver Aid * nadolol (Corgard) 20 MG tablet(Started 10/17/2023) Take 1 (one) tablet by mouth once daily 11 refills by 10/16/2024 * omeprazole (PriLOSEC) 20 MG capsule(Started 10/17/2023) Take 1 (one) capsule by mouth once daily 11 refills by 10/16/2024 * rifAXIMin (Xifaxan) 550 MG tablet(Started 11/04/2023) Take 1 (one) tablet by mouth 2 times daily 3 refills by 11/03/2024 * lactulose (Chronulac) 10 GM/15ML solution(Started 11/14/2023) Take 30 mL by mouth 3 times daily Titrate for 2-4 bowel movements per day 11 refills by 11/13/2024 * spironolactone (Aldactone) 25 MG tablet(Started 01/16/2024) TAKE 2 TABLETS BY MOUTH ONCE DAILY 1 refill by 01/15/2025 * gabapentin (Neurontin) 300 MG capsule(Started 11/04/2023) TAKE ONE CAPSULE BY MOUTH ONCE DAILY 3 refills by 11/03/2024 * lisinopril (Prinivil; Zestril) 20 MG tablet(Started 03/12/2024) Take 1 (one) tablet by mouth once daily * traMADol (Ultram) 50 MG tablet(Started 03/29/2024) Take 1 (one) tablet by mouth 3 times daily as needed for Pain Active Problems Problem Noted Date Diagnosed Date Hepatic encephalopathy 11/01/2023 Obstructive sleep apnea syndrome 05/16/2020 Stenosis of lumbosacral spine 12/21/2018 GERD (gastroesophageal reflux disease) 8 Persistent headaches 02/16/2018 Cervical radiculopathy 10/16/2015 Hypercholesterolemia 10/16/2015 Esophageal varices 05/06/2015 Obesity 12/26/2013 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 (AFLURIA, FLUZONE TRIVALENT; 6MO+) (IIV3)(Given 05/20/2010) Social History Tobacco Use Types Packs/Day Years [...] care, and heating? Not very hard 11/03/2023 [facility] - Occupational Stress [...] place to sleep or slept in a retirement (including now)? No 11/03/2023 Sex and Gender Information Value Date Recorded Sex Assigned at Not on file Gender Identity Not on file Sexual Orientation Not on file Last Filed Vital Signs Vital Sign Reading Time Taken Comments Blood Pressure 148/75 04/27/2024 9:23 AM SOLUTION COORDINATOR Pulse 77 04/27/2024 9:23 AM SOLUTION COORDINATOR Temperature 37 C (98.6 F) 04/27/2024 9:23 AM SOLUTION COORDINATOR Respiratory Rate 16 11/04/2023 11:37 AM CDT Oxygen Saturation 100% 04/27/2024 9:23 AM SOLUTION COORDINATOR Inhaled Oxygen Concentration - - Weight 154.2 kg (340 lb) 04/27/2024 9:23 AM SOLUTION COORDINATOR Height 167.6 cm (5' 6 ) 04/27/2024 9:23 AM SOLUTION COORDINATOR Body Mass Index 54.88 04/27/2024 9:23 AM SOLUTION COORDINATOR Procedures * T4 FREE(Performed 04/27/2024) Performed for Hypothyroidism, unspecified type * TSH(Performed 04/27/2024) Performed for Hypothyroidism, unspecified type * LIPID PROFILE(Performed 04/27/2024) Performed for Class 3 severe obesity due to excess calories with serious comorbidity and body mass index (BMI) of 50.0 to 59.9 in adult (HCC) * HEMOGLOBIN A1C(Performed 04/27/2024) Performed for Class 3 severe obesity due to excess calories with serious comorbidity and body mass index (BMI) of 50.0 to 59.9 in adult (HCC), Screening for diabetes mellitus * HEPATIC FUNCTION PANEL(Performed 11/28/2023) Performed for Liver cirrhosis secondary to ORTIZ (HCC), Secondary esophageal varices without bleeding (HCC) * PT-INR SLH(Performed 11/28/2023) Performed for Liver cirrhosis secondary to ORTIZ (HCC), Secondary esophageal varices without bleeding (HCC) * CBC W AUTO DIFFERENTIAL(Performed 11/28/2023) Performed for Liver cirrhosis secondary to ORTIZ (HCC), Secondary esophageal varices without bleeding (HCC) * BASIC METABOLIC PANEL (CALCIUM TOTAL)(Performed 11/28/2023) Performed for Liver cirrhosis secondary to ORTIZ (HCC), Secondary esophageal varices without bleeding (HCC) * CT ABDOMEN MULTI PHASE W CONT(Performed 11/28/2023) Performed for Liver cirrhosis secondary to ORTIZ (HCC), Secondary esophageal varices without bleeding (HCC) * BILIRUBIN DIRECT(Performed 11/04/2023) * PT-INR [facility](Performed 11/04/2023) * PHOSPHORUS BLOOD(Performed 11/04/2023) * MAGNESIUM BLOOD(Performed 11/04/2023) * COMPREHENSIVE METABOLIC PANEL(Performed 11/04/2023) * CBC W/O DIFFERENTIAL(Performed 11/04/2023) * OT EVAL AND TREAT(Performed 11/03/2023) * AMMONIA(Performed 11/03/2023) * BILIRUBIN DIRECT(Performed 11/03/2023) * PT-INR [facility](Performed 11/03/2023) * PHOSPHORUS BLOOD(Performed 11/03/2023) * MAGNESIUM BLOOD(Performed 11/03/2023) * CBC W/O DIFFERENTIAL(Performed 11/03/2023) * COMPREHENSIVE METABOLIC PANEL(Performed 11/03/2023) * ALPHA FETOPROTEIN BLOOD TUMOR MARKER(Performed 10/17/2023) Performed for Liver cirrhosis secondary to MASH * BILIRUBIN DIRECT(Performed 10/17/2023) Performed for Liver cirrhosis secondary to MASH * PT-INR [facility](Performed 10/17/2023) Performed for Liver cirrhosis secondary to MASH * COMPREHENSIVE METABOLIC PANEL(Performed 10/17/2023) Performed for Liver cirrhosis secondary to MASH * CBC W AUTO DIFFERENTIAL(Performed 10/17/2023) Performed for Liver cirrhosis secondary to MASH * TRANSFERRIN(Performed 10/11/2022) Performed for Liver cirrhosis secondary to ORTIZ (HCC) * HEPATIC FUNCTION PANEL(Performed 10/11/2022) Performed for Liver cirrhosis secondary to ORTIZ (HCC) * BASIC METABOLIC PANEL (CALCIUM TOTAL)(Performed 10/11/2022) Performed for Liver cirrhosis secondary to ORTIZ (HCC) * CT ABDOMEN MULTI PHASE W CONT(Performed 08/18/2021) Performed for 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) * PATHOLOGY TISSUE(Performed 08/18/2021) Performed for Screen for colon cancer, Colon adenomas * COLONOSCOPY SCREEN(Performed 08/18/2021) Performed for Screen for colon cancer, Colon adenomas * ENDOSCOPY, COLON, SCREENING(Performed 08/18/2021) Performed for Colon adenomas * PT-INR [facility](Performed 08/18/2021) Performed for 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) * BILIRUBIN DIRECT(Performed 08/18/2021) Performed for 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) * PT-INR [facility](Performed 08/14/2021) Performed for 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) * COMPREHENSIVE METABOLIC PANEL(Performed 08/14/2021) Performed for 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) * BILIRUBIN DIRECT(Performed 08/14/2021) Performed for 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) * CT ABDOMEN MULTI PHASE W CONT(Performed 05/22/2019) Performed for Liver cirrhosis secondary to ORTIZ (HCC) * CREATININE BLOOD - POCT (IP) SL[facility](Performed 05/22/2019) Performed for Liver cirrhosis secondary to ORTIZ (HCC) * PATHOLOGY TISSUE(Performed 05/22/2019) Performed for Liver cirrhosis secondary to ORTIZ (HCC), Screen for colon cancer * ENDOSCOPY, COLON, SCREENING(Performed 05/22/2019) * COLONOSCOPY SCREEN(Performed 05/22/2019) Performed for Liver cirrhosis secondary to ORTIZ (HCC), Screen for colon cancer * MA ED EGD FLEX TRANSORAL DX(Performed 05/22/2019) Performed for Liver cirrhosis secondary to ORTIZ (HCC), Screen for colon cancer * EGD(Performed 05/22/2019) * MRI LUMBAR SPINE WO CONTRAST(Performed 02/15/2019) * TRANSFERRIN(Performed 02/12/2019) Performed for Liver cirrhosis secondary to ORTIZ (HCC) * IRON BLOOD(Performed 02/12/2019) Performed for Liver cirrhosis secondary to ORTIZ (HCC) * PT-INR [facility](Performed 02/12/2019) Performed for Liver cirrhosis secondary to ORTIZ (HCC) * COMPREHENSIVE METABOLIC PANEL(Performed 02/12/2019) Performed for Liver cirrhosis secondary to ORTIZ (HCC) * CBC W AUTO DIFFERENTIAL(Performed 02/12/2019) Performed for Liver cirrhosis secondary to ORTIZ (HCC) * URIC ACID (EXTERNAL RESULT ENTRY)(Performed 02/09/2019) * COMP MET PANEL (EXTERNAL RESULT ENTRY)(Performed 02/09/2019) * LIPID PROFILE (EXTERAL RESULT ENTRY)(Performed 02/09/2019) * CBC W DIFF (EXTERNAL RESULT ENTRY)(Performed 02/09/2019) * MRI LUMBAR SPINE WO CONTRAST(Performed 01/31/2019) * CT ABDOMEN MULTI PHASE W CONT(Performed 04/21/2017) * PATHOLOGY TISSUE(Performed 04/21/2017) * CREATININE BLOOD - POCT (IP) SL[facility](Performed 04/21/2017) * CT LIVER 3 PHASE W PELVIS(Performed 04/23/2015) * PATHOLOGY TISSUE(Performed 04/23/2015) * HEPATITIS A ANTIBODY(Performed 04/07/2015) * HEMOGLOBIN A1C(Performed 04/07/2015) * HEPATITIS C ANTIBODY(Performed 04/07/2015) * HEPATITIS B SURFACE ANTIGEN W RFLX CONFIRMATION(Performed 04/07/2015) * HEPATITIS B SURFACE ANTIBODY(Performed 04/07/2015) * HEPATITIS B CORE ANTIBODY TOTAL(Performed 04/07/2015) * PT-INR [facility](Performed 04/07/2015) * COMPREHENSIVE METABOLIC PANEL(Performed 04/07/2015) * CBC W AUTO DIFFERENTIAL(Performed 04/07/2015) * CBC W AUTO DIFFERENTIAL(Performed 04/07/2015) * PATHOLOGY TISSUE(Performed 07/27/2013) * ALPHA FETOPROTEIN BLOOD TUMOR MARKER(Performed 06/27/2013) * HEPATIC FUNCTION PANEL(Performed 06/27/2013) * BASIC METABOLIC PANEL (CALCIUM TOTAL)(Performed 06/27/2013) * PT-INR [facility](Performed 06/27/2013) * CBC W AUTO DIFFERENTIAL(Performed 06/27/2013) * PATHOLOGY TISSUE(Performed 10/10/2012) * PATHOLOGY TISSUE(Performed 10/10/2012) * ALPHA FETOPROTEIN BLOOD TUMOR MARKER(Performed 08/23/2012) * CBC W AUTO DIFFERENTIAL(Performed 08/23/2012) * HEPATIC FUNCTION PANEL(Performed 08/23/2012) * BASIC METABOLIC PANEL (CALCIUM TOTAL)(Performed 08/23/2012) * PT-INR [facility](Performed 08/23/2012) * PATHOLOGY REPORTS - HPF HISTORICAL(Performed 08/30/2009) * LIPID PROFILE(Performed 05/09/1998) * COMPREHENSIVE METABOLIC PANEL(Performed 05/09/1998) * CBC W AUTO DIFFERENTIAL(Performed 05/09/1998) * URINALYSIS NO MICROSCOPIC NO CULTURE(Performed 05/09/1998) * ALPHA FETOPROTEIN BLOOD TUMOR MARKER(Performed 05/09/1998) * TSH HI LOW REFLEX FREE T4(Performed 05/09/1998) * COLONOSCOPY DIAGNOSTIC Performed for Deferred diagnosis on axis I Results * HEMOGLOBIN A1C (04/27/2024 12:04 PM SOLUTION COORDINATOR) Only the most recent of2 resultswithin the time period is included. Hemoglobin A1c 4.3 <=5.6 % 04/27/2024 2:23 PM SOLUTION COORDINATOR [facility] Estimated Average Glucose 77 mg/dL 04/27/2024 2:23 PM SOLUTION COORDINATOR [facility] Comment: HbA1c Interpretation: Normal : < 5.7% Pre-diabetes: 5.7-6.4% Diabetes: Equal to or greater than 6.5% Test results diagnostic of diabetes should be repeated for confirmation. Treatment target values recommended by ADA and other clinical organizations should be used to evaluate metabolic control in patients. Reference: [place] Diabetes Association, Standards of Care in Diabetes -2020 In patients 70 years and older consider HbA1c target range of 7.0-7.5% (Reference: Hakeem Willett et al. DAYNEDA. 2012) The Sebia assay for the measurement of HbA1c is a National Glycohemoglobin Standardization Program (NGSP) certified method. Blood BLOOD SPECIMEN / Unknown Lab Venipuncture / Unknown 04/27/2024 12:04 PM SOLUTION COORDINATOR 04/27/2024 12:53 PM SOLUTION COORDINATOR Carrie Milner PA-C LAB - CHEMISTRY ORD ERABLES [address] [address], [place] [phone] * TSH (04/27/2024 12:04 PM SOLUTION COORDINATOR) TSH 1.417 0.350 - 4.940 uIU/mL 04/27/2024 1:37 PM SOLUTION COORDINATOR [facility] Blood BLOOD SPECIMEN / Unknown Lab Venipuncture / Unknown 04/27/2024 12:04 PM SOLUTION COORDINATOR 04/27/2024 12:46 PM SOLUTION COORDINATOR Carrie Milner PA-C LAB - CHEMISTRY ORD ERABLES Performing Organization Address City/[facility]/ZIP Co de Phone Number [address] [address], [place] [phone] * T4 FREE (04/27/2024 12:04 PM SOLUTION COORDINATOR) T4 Free 0.9 0.7 - 1.5 ng/dL 04/27/2024 1:37 PM SOLUTION COORDINATOR [facility] Blood BLOOD SPECIMEN / Unknown Lab Venipuncture / Unknown 04/27/2024 12:04 PM SOLUTION COORDINATOR 04/27/2024 12:46 PM SOLUTION COORDINATOR Carrie Milner PA-C LAB - CHEMISTRY ORD ERABLES Performing Organization Address City/[facility]/ZIP Co de Phone Number [address] [address], [place] [phone] * (ABNORMAL) LIPID PROFILE (04/27/2024 12:04 PM SOLUTION COORDINATOR) Only the most recent of2 resultswithin the time period is included. Pathologist [facility] Cholesterol Total 110 <200 mg/dL 04/27/2024 1:21 PM [facility] HDL 38(L) >40 mg/dL 04/27/2024 1:21 PM [facility] Comment: ATP III Classification of HDL Cholesterol: <40 mg/dL: Considered a major risk factor. >60 mg/dL: Considered a negative risk factor. LDL Calculated 54 <100 mg/dL 04/27/2024 1:21 PM [facility] Comment: ATP III Classification of LDL Cholesterol: <100 mg/dL: Optimal 100 - 129 mg/dL: Near Optimal/Above Optimal 130 - 159 mg/dL: Borderline High 160 - 189 mg/dL: High >190 mg/dL: Very High Triglycerides 91 <150 mg/dL 04/27/2024 1:21 PM [facility] Comment: ATP III Classification of Triglycerides: <150 mg/dL: Normal 150 - 199 mg/dL: Borderline High 200 - 400 mg/dL: High >500 mg/dL: Very High Blood BLOOD SPECIMEN / Unknown Lab Venipuncture / Unknown 04/27/2024 12:04 PM SOLUTION COORDINATOR 04/27/2024 12:46 PM SOLUTION COORDINATOR Carrie Milner PA-C LAB - CHEMISTRY ORD ERABLES Performing Organization Address City/State/[facility] Co de Phone Number [facility] [address] [place] [id number] [phone] * (ABNORMAL) PT-INR [facility] (11/28/2023 1:15 PM CDT) Only the most recent of10 resultswithin the time period is included. [facility] PT 19.5(H) 12.1 - 14.8 Seconds 11/28/2023 2:05 PM CDT [facility] INR 1.7 See Comment 11/28/2023 2:05 PM CDT [facility] Comment:The suggested therap eutic range for standard coumadin (warfarin) therapy is an INR of 2.0-3.0. For high-risk patients (Mechanical Mitral Valve Prosthesis, etc.), the suggested prophylactic therapeutic range is an INR of 2.5-3.5. Blood BLOOD SPECIMEN / Unknown Lab Venipuncture / Unknown 11/28/2023 1:15 PM CDT 11/28/2023 1:38 PM CDT Harish Pedro MD LAB - COAG ULATION ORDERABLES [facility] [address] [place] [address], [facility] [phone] * (ABNORMAL) CBC W/ DIFFERENTIAL (11/28/2023 1:15 PM CDT) Only the most recent of8 resultswithin the time period is included. WBC 3.6(L) 4.0 - 10.7 x10E9/L 11/28/2023 2:02 PM [facility] RBC Count 4.41 4.30 - 5.80 x10E12/L 11/28/2023 2:02 PM [facility] Hemoglobin 14.4 13.3 - 17.5 g/dL 11/28/2023 2:02 PM [facility] Hematocrit 39.2 38.7 - 51.1 % 11/28/2023 2:02 PM [facility] MCV 88.9 80.0 - 98.0 fL 11/28/2023 2:02 PM [facility] MCH 32.7 26.7 - 33.6 pg 11/28/2023 2:02 PM [facility] MCHC 36.7(H) 31.7 - 36.3 g/dL 11/28/2023 2:02 PM [facility] RDW-CV 14.3 11.3 - 14.8 % 11/28/2023 2:02 PM [facility] Platelet Count 52(L) 150 - 420 x10E9/L 11/28/2023 2:02 PM [facility] MPV 11.8(H) 7.8 - 11.4 fL 11/28/2023 2:02 PM [facility] Neutrophil % 49.6 41.0 - 74.0 % 11/28/2023 2:02 PM [facility] Lymphocyte % 34.4 17.0 - 47.0 % 11/28/2023 2:02 PM [facility] Monocyte % 11.3(H) 3.0 - 11.0 % 11/28/2023 2:02 PM [facility] Eosinophil % 3.9 0.0 - 7.0 % 11/28/2023 2:02 PM [facility] Basophil % 0.8 0.0 - 1.6 % 11/28/2023 2:02 PM [facility] Immature Granulocytes % 0.0 0.0 - 1.0 % 11/28/2023 2:02 PM [facility] Neutrophil Absolute 1.76 1.60 - 7.50 x10E9/L 11/28/2023 2:02 PM [facility] Lymphocyte Absolute 1.22 1.00 - 4.40 x10E9/L 11/28/2023 2:02 PM [facility] Monocyte Absolute 0.40 0.15 - 1.00 x10E9/L 11/28/2023 2:02 PM [facility] Eosinophil Absolute 0.14 0.00 - 0.60 x10E9/L 11/28/2023 2:02 PM [facility] Basophil Absolute 0.03 0.00 - 0.13 x10E9/L 11/28/2023 2:02 PM [facility] Blood BLOOD SPECIMEN / Unknown Lab Venipuncture / Unknown 11/28/2023 1:15 PM CDT 11/28/2023 1:38 PM CDT Harish Pedro MD LAB - DAVY TOLOGY ORDERABLES [facility] [address] [place] [address], [facility] [phone] * (ABNORMAL) BASIC METABOLIC PANEL (CALCIUM TOTAL) (11/28/2023 1:15 PM CDT) Only the most recent of4 resultswithin the time period is included. BUN 13 7 - 26 mg/dL 11/28/2023 2:25 PM [facility] Creatinine 0.72 0.71 - 1.16 mg/dL 11/28/2023 2:25 PM [facility] Sodium 136 136 - 145 mmol/L 11/28/2023 2:25 PM [facility] Potassium 4.4 3.5 - 4.5 mmol/L 11/28/2023 2:25 PM [facility] Comment:Hemolysis detected i n this specimen. Hemolysis may cause false elevations in potassium leading to pseudohyperkalemia or masked hypokalemia. Recommend repeat testing if clinically indicated. Chloride 109(H) 98 - 107 mmol/L 11/28/2023 2:25 PM [facility] CO2 21(L) 22 - 29 mmol/L 11/28/2023 2:25 PM [facility] Glucose 84 70 - 115 mg/dL 11/28/2023 2:25 PM [facility] Calcium 8.5 8.4 - 10.2 mg/dL 11/28/2023 2:25 PM [facility] Anion Gap 6 6 - 16 11/28/2023 2:25 PM [facility] BUN/Creatinine Ratio 18 7 - 23 11/07 2:25 PM [facility] Osmolality Calculated 281 275 - 295 mOsm/kg 11/28/2023 2:25 PM [facility] eGFR by CKD-EPI >90 >=90 mL/min/1. 73 m2 11/28/2023 2:25 PM [facility] Blood BLOOD SPECIMEN / Unknown Lab Venipuncture / Unknown 11/28/2023 1:15 PM CDT 11/28/2023 1:38 PM T Harish Pedro MD LAB - CHEM ISTRY ORDERABLES [facility] [address] [place] [address], [facility] [phone] * (ABNORMAL) HEPATIC FUNCTION PANEL (11/28/2023 1:15 PM CDT) Only the most recent of4 resultswithin the time period is included. Protein Total 6.6 6.0 - 8.3 g/dL 024 2:25 PM T [facility] Comment:Hemolysis detected i n this specimen. Hemolysis is known to cause elevations in this analyte. Caution should be exercised in the interpretation of this result. Recommend repeat testing if clinically indicated. Albumin 2.7(L) 3.4 - 5.0 g/dL 11/28/2023 2:25 PM CDT [facility] Bilirubin Total 4.1(H) 0.2 - 1.2 mg/dL 11/07 2:25 PM CDT [facility] Bilirubin Conjugated 0.6(H) 0.1 - 0.5 mg/dL 11/28/2023 2:25 PM T [facility] Bilirubin Unconjugated 3.5 Unconjugated Bilirubin is a calculated value: Reference ranges have not been established. mg/dL 11/28/2023 2:25 PM CDT [facility] Alkaline Phosphatase 82 40 - 150 U/L 11/28/2023 2:25 PM CDT [facility] ALT 31 5 - 55 U/L 11/28/2023 2:25 PM CDT [facility] AST 73(H) 5 - 34 U/L 11/28/2023 2:25 PM T [facility] Comment:Hemolysis detected i n this specimen. Hemolysis is known to cause elevations in this analyte. Caution should be exercised in the interpretation of this result. Recommend repeat testing if clinically indicated. Albumin/Globulin Ratio 0.7(L) 1.1 - 2.3 11/28/2023 2:25 PM CDT [facility] Blood BLOOD SPECIMEN / Unknown Lab Venipuncture / Unknown 11/28/2023 1:15 PM CDT 11/28/2023 1:38 PM CDT Harish Pedro MD LAB - CHEM ISTRY ORDERABLES [facility] [address] [place] [address], [facility] [phone] * CT ABDOMEN MULTI PHASE W CONT (11/28/2023 1:07 PM CDT) Only the most recent of4 resultswithin the time period is included. Anatomical Region Laterality Modality Abdomen Computed Tomogra phy 11/28/2023 1:20 PM CDT Impressions 11/28/2023 7:39 PM CDT Impression: 1.No CT evidence of hepatocellular carcinoma. 2.Hepatic cirrhosis with sequela of portal hypertension including splenomegaly and multiple upper abdominal collaterals including paraesophageal varices and a splenorenal shunt. 3.Status post cholecystectomy. > Dictated by Gus Wagoner MD (physician president). I, Tony Chandler MD have personally reviewed and interpreted this examination/study. > Interpreting Provider: Tony Chandler MD on 11/28/2023 7:39 PM Narrative 11/28/2023 7:39 PM CDT PROCEDURE: CT ABDOMEN MULTI PHASE W CONT, DATE/TIME OF EXAM: 11/28/2023 1:08 PM, LOCATION [facility] INDICATION: K75.81: Liver cirrhosis secondary to ORTIZ (HCC) K74.60: Liver cirrhosis secondary to ORTIZ (HCC) I85.10: Secondary esophageal varices without bleeding (HCC) ADDITIONAL CLINICAL INFORMATION: Ordering Provider Reason For Exam: HCC screening COMPARISON: CT abdomen multiphase dated 08/18/2021. TECHNIQUE: CT of the abdomen was performed following the uneventful administration of 150 mL of Isovue 370 intravenous contrast according to a three-phase liver protocol. Multiplanar reconstructions and MIP images were produced. Findings: Lower Chest: Normal. Hepatobiliary system Liver morphology: The liver is shrunken and has a nodular surface, consistent with hepatic cirrhosis. Varices: Multiple upper abdominal venous collaterals including perigastric, perisplenic and paraesophageal varices. There is recannulization of the umbilical vein. Large splenorenal shunt. Spleen: Enlarged measuring 17.5 cm in craniocaudal dimension. No significant Ascites: None. Focal liver observations Observations compatible with hepatocellular carcinoma by LI-RADS criteria: None. Indeterminate liver observations: None. Benign liver observations: None. Hepatic vasculature Portal and hepatic veins: Normal and patent. Arterial anatomy: Conventional. Gallbladder and bile ducts Gallbladder: Absent. Bile ducts: Nondilated. Retroperitoneum Pancreas: Mild fatty atrophy Adrenals: Normal. Kidneys: Symmetric bilateral renal parenchymal enhancement. No hydronephrosis or nephrolithiasis. Lymph nodes: Multiple subcentimeter mesenteric and retroperitoneal lymph nodes, reactive. Gastrointestinal: The stomach and visualized loops of large and small bowel are unremarkable. Normal appendix. Bones: Bone windows demonstrate no suspicious lytic or blastic lesions. The visible osseous structures are intact. Degenerative changes are seen in the spine. Soft tissues: Mild body wall edema in the lower abdomen. Procedure Note Tony Chandler MD - 11/28/2023 PROCEDURE: CT ABDOMEN MULTI PHASE W CONT, DATE/TIME OF EXAM: 11/28/2023 1:08 PM, LOCATION [facility] INDICATION: K75.81: Liver cirrhosis secondary to ORTIZ (HCC) K74.60: Liver cirrhosis secondary to ORTIZ (HCC) I85.10: Secondary esophageal varices without bleeding (HCC) ADDITIONAL CLINICAL INFORMATION: Ordering Provider Reason For Exam: HCC screening COMPARISON: CT abdomen multiphase dated 08/18/2021. TECHNIQUE: CT of the abdomen was performed following the uneventful administration of 150 mL of Isovue 370 intravenous contrast according toa three-phase liver protocol. Multiplanar reconstructions and MIP imageswere produced. Findings: Lower Chest: Normal. Hepatobiliary system Liver morphology: The liver is shrunken and has a nodular surface, consistent with hepatic cirrhosis. Varices: Multiple upper abdominal venous collaterals includingperigastric, perisplenic and paraesophageal varices. There is recannulization of the umbilical vein. Large splenorenal shunt. Spleen: Enlarged measuring 17.5 cm in craniocaudal dimension. No significant Ascites: None. Focal liver observations Observations compatible with hepatocellular carcinoma by LI-RADScriteria: None. Indeterminate liver observations: None. Benign liver observations: None. Hepatic vasculature Portal and hepatic veins: Normal and patent. Arterial anatomy: Conventional. Gallbladder and bile ducts Gallbladder: Absent. Bile ducts: Nondilated. Retroperitoneum Pancreas: Mild fatty atrophy Adrenals: Normal. Kidneys: Symmetric bilateral renal parenchymal enhancement. No hydronephrosis or nephrolithiasis. Lymph nodes: Multiple subcentimeter mesenteric and retroperitoneal lymph nodes, reactive. Gastrointestinal: The stomach and visualized loops of large and small bowel areunremarkable. Normal appendix. Bones: Bone windows demonstrate no suspicious lytic or blastic lesions. The visible osseous structures are intact. Degenerative changes are seen inthe spine. Soft tissues: Mild body wall edema in the lower abdomen. Impression: 1.No CT evidence of hepatocellular carcinoma. 2.Hepatic cirrhosis with sequela of portal hypertension including splenomegaly and multiple upper abdominal collaterals including paraesophageal varices and a splenorenal shunt. 3.Status post cholecystectomy. > Dictated by Gus Wagoner MD (physician president). I, Tony Chandler MD have personally reviewed and interpreted this examination/study. > Interpreting Provider: Tony Chandler MD on 11/28/2023 7:39 PM Harish Pedro MD CT ORDERAB LES * (ABNORMAL) CBC W/O DIFFERENTIAL (11/04/2023 4:44 AM CDT) Only the most recent of2 resultswithin the time period is included. WBC 4.3 4.0 - 10.7 x10E9/L 11/04/2023 5:52 AM [facility] RBC Count 4.43 4.30 - 5.80 x10E12/L 11/04/2023 5:52 AM [facility] Hemoglobin 14.2 13.3 - 17.5 g/dL 11/04/2023 5:52 AM [facility] Hematocrit 39.5 38.7 - 51.1 % 11/04/2023 5:52 AM [facility] MCV 89.2 80.0 - 98.0 fL 11/04/2023 5:52 AM [facility] MCH 32.1 26.7 - 33.6 pg 11/04/2023 5:52 AM [facility] MCHC 35.9 31.7 - 36.3 g/dL 11/04/2023 5:52 AM [facility] RDW-CV 14.4 11.3 - 14.8 % 11/04/2023 5:52 AM [facility] Platelet Count 80(L) 150 - 420 x10E9/L 11/04/2023 5:52 AM [facility] MPV 11.1 7.8 - 11.4 fL 11/04/2023 5:52 AM [facility] Blood BLOOD SPECIMEN / Unknown Venipuncture / Unknown 11/04/2023 4:44 AM CDT 11/04/2023 4:56 AM CDT Abel Caicedo MD LAB - HEMATOLOGY ORD ERABLES Performing Organization Address City/[facility]/ZIP Co de Phone Number [facility] [address] [place] [phone], [facility] [phone] * (ABNORMAL) COMPREHENSIVE METABOLIC PANEL (11/04/2023 4:44 AM CDT) Only the most recent of7 resultswithin the time period is included. BUN 14 7 - 26 mg/dL 11/04/2023 5:25 AM [facility] Creatinine 0.71 0.71 - 1.16 mg/dL 11/04/2023 5:25 AM [facility] Sodium 137 136 - 145 mmol/L 11/04/2023 5:25 AM [facility] Potassium 3.7 3.5 - 4.5 mmol/L 11/04/2023 5:25 AM [facility] Chloride 109(H) 98 - 107 mmol/L 11/04/2023 5:25 AM [facility] CO2 26 22 - 29 mmol/L 11/04/2023 5:25 AM [facility] Glucose 83 70 - 115 mg/dL 11/04/2023 5:25 AM [facility] Calcium 8.7 8.4 - 10.2 mg/dL 11/04/2023 5:25 AM [facility] Protein Total 6.5 6.0 - 8.3 g/dL 11/04/2023 5:25 AM [facility] Albumin 2.7(L) 3.4 - 5.0 g/dL 11/04/2023 5:25 AM [facility] Bilirubin Total 4.9(H) 0.2 - 1.2 mg/dL 11/04/2023 5:25 AM [facility] Alkaline Phosphatase 87 40 - 150 U/L 11/04/2023 5:25 AM CDT [facility] ALT 18 5 - 55 U/L 11/04/2023 5:25 AM [facility] AST 58(H) 5 - 34 U/L 11/04/2023 5:25 AM [facility] Anion Gap 2(L) 6 - 16 11/04/2023 5:25 AM [facility] BUN/Creatinine Ratio 20 7 - 23 11/04/2023 5:25 AM [facility] Osmolality Calculated 284 275 - 295 mOsm/kg 11/04/2023 5:25 AM [facility] Albumin/Globulin Ratio 0.7(L) 1.1 - 2.3 11/04/2023 5:25 AM [facility] eGFR by CKD-EPI >90 >=90 mL/min/1.7 3 m2 11/04/2023 5:25 AM [facility] Blood BLOOD SPECIMEN / Unknown Venipuncture / Unknown 11/04/2023 4:44 AM CDT 11/04/2023 4:57 AM CDT Abel Caicedo MD LAB - CHEMISTRY SAMANTHA MCLAIN [address] [address], [place] [phone] * PHOSPHORUS BLOOD (11/04/2023 4:44 AM CDT) Only the most recent of2 resultswithin the time period is included. Phosphorus 2.9 2.8 - 5.1 mg/dL 11/04/2023 5:25 AM CDT [facility] Blood BLOOD SPECIMEN / Unknown Venipuncture / Unknown 11/04/2023 4:44 AM CDT 11/04/2023 4:57 AM CDT Abel Caicedo MD LAB - CHEMISTRY SAMANTHA MCLAIN [address] [address], [place] [phone] * MAGNESIUM BLOOD (11/04/2023 4:44 AM CDT) Only the most recent of2 resultswithin the time period is included. Magnesium 1.6 1.6 - 2.6 mg/dL 11/04/2023 5:25 AM CDT [facility] Blood BLOOD SPECIMEN / Unknown Venipuncture / Unknown 11/04/2023 4:44 AM CDT 11/04/2023 4:57 AM CDT Abel Caicedo MD LAB - CHEMISTRY SAMANTHA MCLAIN [facility] [address] [place] [address], [facility] [phone] * (ABNORMAL) BILIRUBIN DIRECT (11/04/2023 4:44 AM CDT) Only the most recent of5 resultswithin the time period is included. Bilirubin Conjugated 0.7(H) 0.1 - 0.5 mg/dL 11/04/2023 5:25 AM CDT [facility] Blood BLOOD SPECIMEN / Unknown Venipuncture / Unknown 11/04/2023 4:44 AM CDT 11/04/2023 4:57 AM CDT Abel Caicedo MD LAB - CHEMISTRY SAMANTHA MCLAIN Performing Organization Address City/[facility]/ZIP Co de Phone Number [facility] [address] [place] [address], [facility] [phone] * (ABNORMAL) AMMONIA (11/03/2023 8:06 PM CDT) Ammonia 112(H) <=72 umol/L 11/03/2023 8:38 PM CDT [facility] Blood BLOOD SPECIMEN / Unknown Lab Venipuncture / Unknown 11/03/2023 8:06 PM CDT 11/03/2023 8:09 PM CDT Abel Caicedo MD LAB - CHEMISTRY SAMANTHA MCLAIN [address] [address], [facility] [phone] * ALPHA FETOPROTEIN BLOOD TUMOR MARKER (10/17/2023 10:26 AM CDT) Only the most recent of4 resultswithin the time period is included. Pathologist [facility] Alpha-Fetoprote in Tumor Marker 2.1 <=8.3 ng/mL 10/17/2023 12:31 PM CDT [facility] Comment: AFP values will vary depending on testing procedure used. Results are not comparable across different methods. AFP values obtained by [facility] using an MyBeauty[employer] Alinity Immunoassay. Blood BLOOD SPECIMEN / Unknown Lab Venipuncture / Unknown 10/17/2023 10:26 AM CDT 10/17/2023 11:42 AM CDT Harish Pedro MD LAB - CHEM ISTRY ORDERABLES Performing Organization Address [facility]/ZIP Co de Phone Number [address] [address], [facility] [phone] * TRANSFERRIN (10/11/2022 8:20 AM CDT) Only the most recent of2 resultswithin the time period is included. [facility] Transferrin 238 174 - 382 mg/dL 10/11/2022 9:08 AM CDT [facility] Blood BLOOD SPECIMEN / Unknown Lab Venipuncture / Unknown 10/11/2022 8:20 AM CDT 10/11/2022 8:27 AM CDT Harish Pedro MD LAB - CHEM ISTRY ORDERABLES Performing Organization Address City/[facility]/ZIP Co de Phone Number [address] [phone], [facility] [phone] * PATHOLOGY TISSUE (08/18/2021 12:18 PM CDT) Only the most recent of7 resultswithin the time period is included. Pathologist [facility] Case Report Surgical Pathology Report Case: [id number] Authorizing Provider: Harish Ansari MD Collected: 08/18/2021 12:18 PM Ordering Location: [facility] ENDOSCOPY Received: 08/18/2021 01:41 PM Pathologist: Malena Thomas MD Specimens: A) - Large Intestine, Right/Ascending Colon, Ascending Colon Polyp x 1 B) - Rectum, Rectal Polyp x 1 08/19/2021 2:54 PM CDT [facility] Final Diagnosis Large intestine, ascending colon polyp x1, biopsy (A): - Polypoid granulation tissue Large intestine, rectal polyp x1, biopsy (B): - Hyperplastic polyp 08/19/2021 2:54 PM T [facility] Microscopic Description and Comment Microscopic examination substantiates the final diagnosis. 08/19/2021 2:54 PM CDT [facility] Clinical History The patient is a 51-year-old man with personal history of colonic polyps. Operative procedure/findings: colonoscopy - 5 mm semi-pedunculated polyp in ascending, resected and retrieved; 5 mm sessile polyp in recto-sigmoid, resected and retrieved. 08/19/2021 2:54 PM CDT [facility] Gross Description The requisition and specimen label(s) are identified with the patient's name, Justin De La Cruz. Received in formalin, specimen A , are multiple torres-pink tissue fragments from 0.1 x 0.1 x 0.1 cm up to 0.5 x 0.4 x 0.2 cm submitted in toto in A1. Received in formalin, specimen B are 2 torres-each 0.4 x 0.2 x 0.2 cm submitted in toto in B1. SP 08/19/2021 2:54 PM CDT [facility] Disclaimer The performance characteristics of all immunohistochemical and indirect immunofluorescence stains (if any) cited in this report were determined by the Histopathology Laboratory of [facility]. Some of these tests were developed by our own laboratory and have not been cleared or approved by the US Food and Drug Administration. The FDA does not require this test to go through premarket FDA review. These tests are used for clinical purposes. They should not be regarded as investigational or for research. This laboratory is certified under the Clinical Laboratory Improvement Amendments (CLIA) as qualified to perform high complexity clinical laboratory testing. This case has been personally reviewed and interpreted by the attending (teaching) pathologist. 08/19/2021 2:54 PM CDT [facility] Embedded Images 08/19/2021 2:54 PM CDT [facility] Biopsy, NOS (Large Intestine, Right/Ascending Colon) 08/18/2021 12:18 PM CDT 08/18/2021 1:41 PM CDT Comment:Pre-op diagnosis: Screen for colon cancer [Z12.11] Biopsy, NOS ENTIRE RECTUM / Unknown 08/18/2021 12:41 PM CDT 08/18/2021 1:41 PM CDT Comment:Pre-op diagnosis: Screen for colon cancer [Z12.11] Harish Pedro MD LAB - PATH OLOGY/CYTOLOGY ORDERABLES Performing Organization Address City/State/[facility] Co de Phone Number [facility] [address] [phone] * ENDOSCOPY, COLON, SCREENING (08/18/2021 11:37 AM [...] and oxygen saturations were monitored continuously. The CF-[id number] was introduced through the anus and advanced [...] non-cronin portions. Procedure Code(s): --- Professional --- 67982, Colonoscopy, flexible; with removal of tumor(s), polyp(s), or other lesion(s) by snare technique Diagnosis Code(s): --- Professional --- K63.5, Polyp of colon Z86.010, Personal history of colonic polyps CPT copyright 2019 [employer]. All rights reserved. The codes documented in this report are preliminary and upon storage brine worker review may be revised to meet current compliance requirements. Harish Ansari MD 08/18/2021 1:11:48 PM This report has been signed electronically. Note Initiated On: 08/18/2021 11:37 AM Number of Addenda: [address] [employer]OVATION 08/18/2021 11:3 7 AM CDT Harish Pedro MD GI PROCEDU RE ORDERABLES Performing Organization Address City/[facility] Co de Phone Number [facility] [employer] * CREATININE BLOOD - POCT (IP) [facility] (05/22/2019 12:59 PM SOLUTION COORDINATOR) Only the most recent of2 resultswithin the time period is included. Creatinine POCT 0.8 0.3 - 1.3 mg/dL [facility] POCT TESTING eGFR POCT 60 60 ml/min [facility] Blood BLOOD SPECIMEN / Unknown 05/22/2019 12:59 PM SOLUTION COORDINATOR Harish Pedro MD LAB - POIN T [facility] ORDERABLES Performing Organization Address City/[facility]/ZIP Co de Phone Number [facility] POCT TESTING [address] [phone] * ENDOSCOPY, COLON, SCREENING (05/22/2019 10:44 AM SOLUTION COORDINATOR) Report Endoscopy POC Endoscopy Department Report __ _ Patient Name: Justin De La Cruz Procedure Date: 05/22/2019 10:44 AM Date of : 1970 Classification: Outpatient Gender: Male Ethnicity: Not or Race: White __ _ Providers: Harish Ansari MD, Elke Graham (Fellow) Referring MD: Renzo Mishra MD (Referring MD) Procedure: Colonoscopy Indications: High risk colon cancer surveillance: Personal history of colonic polyps Medications: Monitored Anesthesia Care Comorbidities Cirrhosis Patient Profile: This is a 49 year old male. Description of Procedure: Pre-Anesthesia Assessment: - Prior to the procedure, a History and Physical was performed, and patient medications and allergies were reviewed. The patient is competent. The risks and benefits of the procedure and the sedation options and risks were discussed with the patient. All questions were answered and informed consent was obtained. Patient identification and proposed procedure were verified by the physician, the nurse and the anesthesiologist in the pre-procedure area. Mental Status Examination: alert and oriented. Airway Examination: normal oropharyngeal airway and neck mobility. Respiratory Examination: clear to auscultation. CV Examination: normal. Prophylactic Antibiotics: The patient does not require prophylactic antibiotics. Prior Anticoagulants: The patient has taken no previous anticoagulant or antiplatelet agents. ASA Grade Assessment: IV - A patient with severe systemic disease that is a constant threat to life. After reviewing the risks and benefits, the patient was deemed in satisfactory condition to undergo the procedure. The anesthesia plan was to use monitored anesthesia care (MAC). Immediately prior to administration of medications, the patient was re-assessed for adequacy to receive sedatives. The heart rate, respiratory rate, oxygen saturations, blood pressure, adequacy of pulmonary ventilation, and response to care were monitored throughout the procedure. The physical status of the patient was re-assessed after the procedure. After I obtained informed consent, the scope was passed under direct vision. Throughout the procedure, the patient's blood pressure, pulse, and oxygen saturations were monitored continuously. The CF-[id number] was introduced through the anus and advanced to the terminal ileum. The colonoscopy was performed without difficulty. The patient tolerated the procedure well. The quality of the bowel preparation was evaluated using the BBPS (Filer Bowel Preparation Scale) with scores of: Right Colon = 1 (portion of mucosa seen, but other areas not well seen due to staining, residual stool and/or opaque liquid), Transverse Colon = 1 (portion of mucosa seen, but other areas not well seen due to staining, residual stool and/or opaque liquid) and Left Colon = 2 (minor amount of residual staining, small fragments of stool and/or opaque liquid, but mucosa seen well). The total BBPS score equals 4. The quality of the bowel preparation was inadequate. The terminal ileum, ileocecal valve, appendiceal orifice, and rectum were photographed. Findings: Hemorrhoids were found on perianal exam. The terminal ileum appeared normal. Extensive amounts of stool was found in the transverse colon and in the ascending colon, interfering with visualization. Three sessile polyps were found in the descending colon. The polyps were 2 to 3 mm in size. These polyps were removed with a jumbo cold forceps. Resection and retrieval were complete. Estimated blood loss was minimal. 15 sessile polyps were found in the sigmoid colon. The polyps were 2 to 4 mm in size. These polyps were removed with a jumbo cold forceps. Resection and retrieval were complete. Estimated blood loss was minimal. Estimated Blood Loss: Estimated blood loss was minimal. Complications: No immediate complications. Impression: - Preparation of the colon was inadequate. - Hemorrhoids found on perianal exam. - The examined portion of the ileum was normal. - Stool in the transverse colon and in the ascending colon. - Three 2 to 3 mm polyps in the descending colon, removed with a jumbo cold forceps. Resected and retrieved. - 15 2 to 4 mm polyps in the sigmoid colon, removed with a jumbo cold forceps. Resected and retrieved. Recommendation: - Patient has a contact number available for emergencies. The signs and symptoms of potential delayed complications were discussed with the patient. Return to normal activities tomorrow. Written discharge instructions were provided to the patient. - Resume previous diet. - Continue present medications. - Repeat colonoscopy in 1 year because the bowel preparation was suboptimal. Will need 2 day preparation for next colonoscopy. - Return to GI clinic as previously scheduled. Attending Participation: I was present and participated during the entire procedure, including non-cronin portions. Procedure Code(s): --- Professional --- 90094, Colonoscopy, flexible; with biopsy, single or multiple Diagnosis Code(s): --- Professional --- Z86.010, Personal history of colonic polyps K64.9, Unspecified hemorrhoids D12.4, Benign neoplasm of descending colon D12.5, Benign neoplasm of sigmoid colon K74.60, Unspecified cirrhosis of liver CPT copyright 2016 [employer]. All rights reserved. The codes documented in this report are preliminary and upon storage brine worker review may be revised to meet current compliance requirements. Harish Ansari MD 05/22/2019 11:44:25 AM This report has been signed electronically. Note Initiated On: 05/22/2019 10:44 AM Number of Addenda: [id number] [place] [address] [facility] [employer] 05/22/2019 10:4 4 AM SOLUTION COORDINATOR Elke Graham MD GI PROCEDUR E ORDERABLES [facility] [employer] * EGD (05/22/2019 10:17 AM SOLUTION COORDINATOR) Report Endoscopy POC Endoscopy Department Report __ _ Patient Name: Justin De La Cruz Procedure Date: 05/22/2019 10:17 AM Date of : 1970 Classification: Outpatient Gender: Male Ethnicity: Not or Race: White __ _ Providers: Harish Ansari MD, Elke Graham (Fellow) Referring MD: Renzo Mishra MD (Referring MD) Procedure: Upper GI endoscopy Indications: To evaluate esophageal varices in patient with suspected portal hypertension Medications: Monitored Anesthesia Care Patient Profile: This is a 49 year old male. Description of Procedure: Pre-Anesthesia Assessment: - Prior to the procedure, a History and Physical was performed, and patient medications and allergies were reviewed. The patient is competent. The risks and benefits of the procedure and the sedation options and risks were discussed with the patient. All questions were answered and informed consent was obtained. Patient identification and proposed procedure were verified by the physician, the nurse and the anesthesiologist in the pre-procedure area. Mental Status Examination: alert and oriented. Airway Examination: normal oropharyngeal airway and neck mobility. Respiratory Examination: clear to auscultation. CV Examination: normal. Prophylactic Antibiotics: The patient does not require prophylactic antibiotics. Prior Anticoagulants: The patient has taken no previous anticoagulant or antiplatelet agents. ASA Grade Assessment: IV - A patient with severe systemic disease that is a constant threat to life. After reviewing the risks and benefits, the patient was deemed in satisfactory condition to undergo the procedure. The anesthesia plan was to use monitored anesthesia care (MAC). Immediately prior to administration of medications, the patient was re-assessed for adequacy to receive sedatives. The heart rate, respiratory rate, oxygen saturations, blood pressure, adequacy of pulmonary ventilation, and response to care were monitored throughout the procedure. The physical status of the patient was re-assessed after the procedure. After obtaining informed consent, the endoscope was passed under direct vision. Throughout the procedure, the patient's blood pressure, pulse, and oxygen saturations were monitored continuously. The GIF-[id number] was introduced through the mouth, and advanced to the second part of duodenum. The upper GI endoscopy was accomplished without difficulty. The patient tolerated the procedure well. Findings: Esophagogastric landmarks were identified: the Z-line was found at 40 cm, the upper extent of the gastric folds was found at 40 cm and the site of hiatal narrowing was found at 40 cm from the incisors. Non-bleeding medium (< 5 mm) varices were found in the middle third of the esophagus and in the lower third of the esophagus,. No stigmata of recent bleeding were evident and no red aydee signs were present. The cardia and gastric fundus were normal on retroflexion. Moderate portal hypertensive gastropathy was found in the entire examined stomach. The examined duodenum was normal. Estimated Blood Loss: Estimated blood loss: none. Complications: No immediate complications. Impression: - Esophagogastric landmarks identified. - Non-bleeding medium (< 5 mm) esophageal varices. - Portal hypertensive gastropathy. - Normal examined duodenum. - No specimens collected. Recommendation: - Patient has a contact number available for emergencies. The signs and symptoms of potential delayed complications were discussed with the patient. Return to normal activities tomorrow. Written discharge instructions were provided to the patient. - Resume previous diet. - Continue present medications. - Begin nadolol 20 mg daily. - Perform a colonoscopy today. Attending Participation: I was present and participated during the entire procedure, including non-cronin portions. Procedure Code(s): --- Professional --- 17028, Esophagogastroduode noscopy, flexible, transoral; diagnostic, including collection of specimen(s) by brushing or washing, when performed (separate procedure) Diagnosis Code(s): --- Professional --- I85.00, Esophageal varices without bleeding K76.6, Portal hypertension K31.89, Other diseases of stomach and duodenum CPT copyright 2016 [employer]. All rights reserved. The codes documented in this report are preliminary and upon storage brine worker review may be revised to meet current compliance requirements. Harish Ansari MD 05/22/2019 11:42:37 AM This report has been signed electronically. Note Initiated On: 05/22/2019 10:17 AM Number of Addenda: [address] 05/22/2019 10:1 7 AM SOLUTION COORDINATOR Elke Graham MD GI PROCEDUR E ORDERABLES Performing Organization Address [facility] Co de Phone Number [facility] PROVATION * MRI LUMBAR SPINE WO CONTRAST (02/15/2019) Only the most recent of2 resultswithin the time period is included. Anatomical Region Laterality Modality Spine Magnetic Resonan ce Gala Brar DIVERSITY SPECIALIST-MEDICAL RECORD CLERK MR ORDERABLES * IRON BLOOD (02/12/2019 11:24 AM CDT) Iron 82 50 - 175 mcg/dL 02/12/2019 12:30 PM CDT [facility] Blood BLOOD SPECIMEN / Unknown Lab Venipuncture / Unknown 02/12/2019 11:24 AM CDT 02/12/2019 11:59 AM CDT Harish Pedro MD LAB - CHEM ISTRY ORDERABLES Performing Organization Address [facility] de Phone Number [address] [phone] * (ABNORMAL) CBC W DIFF (EXTERNAL RESULT ENTRY) (02/09/2019) WBC (EXTERNAL RESULT) 4.9 4.5 - 11.0 10^3/ul Hemoglobin (EXTERNAL RESULT) 15.7 13.5 - 17.5 g/dl Hematocrit (EXTERNAL RESULT) 45.0 40.0 - 54.0 % Platelets (EXTERNAL RESULT) 107(A) 150 - 400 10^3/ul Neutrophil Absolute (EXTERNAL RESULT) 2.77 10^3/ul Blood BLOOD SPECIMEN / Unknown 02/09/2019 Historical Provider LAB - HEMATOLOGY ORDERABLES * URIC ACID (EXTERNAL RESULT ENTRY) (02/09/2019) Uric acid (EXTERNAL RESULT) 5.7 3.5 - 7.2 mg/dl Blood BLOOD SPECIMEN / Unknown 02/09/2019 Historical Provider LAB - CHEMISTRY O RDERABLES * (ABNORMAL) COMP MET PANEL (EXTERNAL RESULT ENTRY) (02/09/2019) Glucose (EXTERNAL) 111(A) 65 - 99 mg/dL Sodium (EXTERNAL RESULT) 140 137 - 145 mmol/L Potassium (EXTERNAL RESULT) 3.8 3.6 - 5.0 mmol/L Chloride (EXTERNAL RESULT) 104 98 - 107 mmol/L CO2 (EXTERNAL) 30 22 - 30 mmol/L Calcium (EXTERNAL RESULT) 9 8.9 - 10.0 mg/dL Anion Gap (EXTERNAL RESULT) 9.8 8.0 - 16.0 mmol/L BUN (EXTERNAL RESULT) 18 9 - 20 mg/dL Creatinine (EXTERNAL RESULT) 0.8 0.8 - 1.5 mg/dl Alkaline Phosphatase (EXTERNAL RESULT) 93 40 - 150 U/L ALT (EXTERNAL RESULT) 35 1 - 55 U/L AST (EXTERNAL RESULT) 56(A) 5 - 34 U/L Protein Total (EXTERNAL RESULT) 7 6.4 - 8.3 gm/dL Albumin (EXTERNAL RESULT) 3.7 3.5 - 5.0 gm/dL Bilirubin Total (EXTERNAL RESULT) 1.9(A) 0.2 - 1.0 mg/dL eGFR MDRD (EXTERNAL RESULT) 109 mL/min/1.7 3m2 eGFR (EXTERNAL) Blood BLOOD SPECIMEN / Unknown 02/09/2019 Historical Provider LAB - CHEMISTRY O RDERABLES * LIPID PROFILE (EXTERAL RESULT ENTRY) (02/09/2019) Cholesterol (EXTERNAL RESULT) 128 0 - 200 mg/dL Triglycerides (EXTERNAL RESULT) 102 1 - 150 mg/dL HDL (EXTERNAL RESULT) 31 29 - 67 mg/dL LDL (EXTERNAL RESULT) 77 0 - 130 mg/dL VLDL (EXTERNAL RESULT) Chol HDL Ratio (External Result) 4.1 0.0 - 4.8 Blood BLOOD SPECIMEN / Unknown 02/09/2019 Historical Provider LAB - CHEMISTRY O RDERABLES * CT LIVER 3 PHASE W PELVIS (04/23/2015 7:00 PM SOLUTION COORDINATOR) Anatomical Region Laterality Modality Abdomen Other Impressions 04/24/2015 3:55 PM SOLUTION COORDINATOR IMPRESSION: 1. No arterially-enhancing hepatic lesions concerning for hepatocellular carcinoma. 2. Hepatic cirrhosis with sequela of portal hypertension. 3. No urolithiasis or findings to explain the patient's reported right flank pain. Dictated by Randal Coe MD (physician president). This report was approved by Randal Coe on 04/24/2015 11:29 AM . I, Dr. ANI MILLAN M.D. have personally reviewed and interpreted this examination/study. This report was electronically signed by ANI MILLAN M.D. on 04/24/2015 3:55 PM . Narrative 04/24/2015 3:55 PM SOLUTION COORDINATOR EXAMINATION: Computed tomography (CT) of the abdomen and pelvis with contrast HISTORY: Nonalcoholic steatohepatitis cirrhosis and right flank pain TECHNIQUE: CT of the abdomen was performed following the uneventful administration of 150 mL of Omnipaque 350 intravenous contrast according to a three-phase liver protocol. CT of the pelvis was also performed during the portal venous phase according to standard protocol. COMPARISON: No prior study is available for comparison. FINDINGS: The aorta is normal in course and caliber. The visible lung bases are clear. The heart size is normal without pericardial effusion. Mild surface nodularity of the liver is consistent with hepatic cirrhosis. No arterially-enhancing liver lesion suspicious for hepatocellular carcinoma is identified. The hepatic arterial anatomy is conventional. The portal vein is nondilated. The portal and main hepatic veins are patent without evidence of thrombi. Small perisplenic varices are identified. No ascites is seen. The spleen is enlarged, measuring 14.9 cm CC. The gallbladder is surgically absent. The intrahepatic and extrahepatic bile ducts are nondilated. There is fatty replacement of the pancreas. The adrenal glands are normal. The kidneys enhance symmetrically. There is no evidence of renal calculi or hydronephrosis. Oral contrast opacifies the stomach and proximal small bowel. The distal esophagus and stomach appear normal. The small bowel and large bowel are normal in caliber without evidence of wall thickening or obstruction. The appendix appears normal without appendicolith or surrounding inflammatory changes. No free air is identified within the abdomen. There is no abdominal lymphadenopathy. The bladder is nondistended. The prostate is normal. No free fluid is seen within the pelvis. There is no pelvic lymphadenopathy. Bone windows demonstrate no suspicious lytic or blastic lesions. The visible osseous structures are intact. Degenerative changes are seen at L5-S1. Procedure Note Ani Millan MD - 08/06/2017 EXAMINATION: Computed tomography (CT) of the abdomen and pelvis withcontrast HISTORY: Nonalcoholic steatohepatitis cirrhosis and right flank pain TECHNIQUE: CT of the abdomen was performed following the uneventfuladministration of 150 mL of Omnipaque 350 intravenous contrast accordingto a three-phase liver protocol. CT of the pelvis was also performedduring the portal venous phase according to standard protocol. COMPARISON: No prior study is available for comparison. FINDINGS: The aorta is normal in course and caliber. The visible lung bases are clear. The heart size is normal withoutpericardial effusion. Mild surface nodularity of the liver is consistent with hepatic cirrhosis.No arterially-enhancing liver lesion suspicious for hepatocellularcarcinoma is identified. The hepatic arterial anatomy is conventional. The portal vein isnondilated. The portal and main hepatic veins are patent without evidenceof thrombi. Small perisplenic varices are identified. No ascites is seen.The spleen is enlarged, measuring 14.9 cm CC. The gallbladder is surgically absent. The intrahepatic and extrahepaticbile ducts are nondilated. There is fatty replacement of the pancreas. Theadrenal glands are normal. The kidneys enhance symmetrically. There is noevidence of renal calculi or hydronephrosis. Oral contrast opacifies the stomach and proximal small bowel. The distalesophagus and stomach appear normal. The small bowel and large bowel arenormal in caliber without evidence of wall thickening or obstruction. Theappendix appears normal without appendicolith or surrounding inflammatory changes. No free air isidentified within the abdomen. There is no abdominal lymphadenopathy. The bladder is nondistended. The prostate is normal. No free fluid is seenwithin the pelvis. There is no pelvic lymphadenopathy. Bone windows demonstrate no suspicious lytic or blastic lesions. Thevisible osseous structures are intact. Degenerative changes are seen atL5-S1. IMPRESSION IMPRESSION: 1. No arterially-enhancing hepatic lesions concerning for hepatocellularcarcinoma. 2. Hepatic cirrhosis with sequela of portal hypertension. 3. No urolithiasis or findings to explain the patient's reported rightflank pain. Dictated by Randal Coe MD (physician president). This report was approved by Randal Coe on 04/24/2015 11:29 AM . I, Dr. ANI MILLAN M.D. have personally reviewed and interpreted thisexamination/study. This report was electronically signed by ANI MILLAN M.D. on04/24/2015 3:55 PM . Harish Pedro MD CT ORDERAB LES * HEPATITIS B SURFACE ANTIBODY (04/07/2015 3:28 PM SOLUTION COORDINATOR) Hepatitis B Virus Surface Antibody Non-react az Non-react az [facility] Comment: < 8 mIU/mL Hepatitis B surface Antibody (HBsAb). Nonreactive for HBsAb - individual is considered not immune to Hepatitis B Virus infection. Hepatitis B Surface Antibody Quantitative 0.1 <8.0 mIU/mL [facility] Comment: Hepatitis B Surface Antibody Numeric Result Interpretation: Nonreactive: <8.0 mIU/mL Indeterminate: 8.0 - 12.0 mIU/mL Reactive: >12.0 mIU/mL Blood specimen (specimen) BLOOD SPECIMEN / Unknown 04/07/2015 3:28 PM SOLUTION COORDINATOR 04/07/2015 3:49 PM SOLUTION COORDINATOR Harish Pedro MD LAB - CHEM ISTRY ORDERABLES [address] [phone] * HEPATITIS B CORE ANTIBODY (04/07/2015 3:28 PM SOLUTION COORDINATOR) HBc Antibody Total Non-reacti ve Non-reacti ve [facility] Blood specimen (specimen) BLOOD SPECIMEN / Unknown 04/07/2015 3:28 PM SOLUTION COORDINATOR 04/07/2015 3:49 PM SOLUTION COORDINATOR Harish Pedro MD LAB - CHEM ISTRY ORDERABLES Performing Organization Address [facility] Co de Phone Number [address] [phone] * HEPATITIS B SURFACE ANTIGEN W RFLX CONFIRMATION (04/07/2015 3:28 PM SOLUTION COORDINATOR) Pathologist [facility] Hepatitis B Virus Surface Antigen Non-reacti ve Non-reacti ve [facility] Blood specimen (specimen) BLOOD SPECIMEN / Unknown 04/07/2015 3:28 PM SOLUTION COORDINATOR 04/07/2015 3:49 PM SOLUTION COORDINATOR Harish Pedro MD LAB - CHEM ISTRY ORDERABLES Performing Organization Address [facility] de Phone Number [address] [phone] * HEPATITIS C ANTIBODY (04/07/2015 3:28 PM SOLUTION COORDINATOR) Pathologist [facility] Hepatitis C Antibody Non-react az Non-reac tive [facility] Comment: Hepatitis C Antibody screen indicates no serologic evidence of past or current infection with Hepatitis C Virus. Patients with unexplained liver disease who are immunocompromised or suspected of having acute Hepatitis C infection may benefit from Nucleic Acid Test (JOCY) for Hepatitis C Viral RNA to confirm Hepatitis C status. Blood specimen (specimen) BLOOD SPECIMEN / Unknown 04/07/2015 3:28 PM SOLUTION COORDINATOR 04/07/2015 3:49 PM SOLUTION COORDINATOR Harish Pedro MD LAB - CHEM ISTRY ORDERABLES Performing Organization Address [facility] Co de Phone Number [address] [phone] * (ABNORMAL) HEPATITIS A ANTIBODY (04/07/2015 3:28 PM SOLUTION COORDINATOR) Hepatitis A Virus Antibody Total Positive(A ) Negative [facility] Blood specimen (specimen) 04/07/2015 3:28 PM SOLUTION COORDINATOR 04/07/2015 3:49 PM SOLUTION COORDINATOR Narrative [facility] ([facility]) - 04/09/2015 6:14 AM SOLUTION COORDINATOR Performed at: Lab[address] [id number] [employer] Sales Representative: Bishnu Crowley PhD, Phone: [phone] Harish Pedro MD LAB - CHEM ISTRY ORDERABLES Performing Organization Address [facility]/ZIP Co de Phone Number [facility] * PATHOLOGY REPORTS - [facility] HISTORICAL (08/30/2009 1:53 AM CDT) 08/30/2009 1:53 AM CDT Narrative [facility] - 08/30/2009 1:53 AM CDT Historical Provider LAB - PATHOLOGY/C YTOLOGY ORDERABLES Performing Organization Address [facility]/ZIP Co de Phone Number [facility] * TSH HI LOW REFLEX FREE T4 (05/09/1998 12:00 AM SOLUTION COORDINATOR) TSH 1.14 [facility] T4 Free 8.7 [facility] 05/09/1998 Narrative [facility] - 05/09/1998 12:00 AM SOLUTION COORDINATOR This order was created through External Result Entry Olena Lea MD LAB - CHEMISTRY SAMANTHA MCLAIN Performing Organization Address City/[facility]/ZIP Co de Phone Number [facility] * URINALYSIS DIPSTICK AUTO (05/09/1998 12:00 AM SOLUTION COORDINATOR) Color UA YELLOW [facility] Clarity UA CLEAR [facility] GLUCOSE ([facility]) NEG [facility] Bilirubin NEG [facility] Ketones NEG [facility] Specific Avery 1.015 [facility] pH Urine 7.5 [facility] Protein UA TRACE [facility] Urobilinogen 4.0 [facility] Nitrite UA NEG [facility] Blood UA Negative [facility] Leukocytes NEG [facility] WBC, UA 1-5 [facility] RBC UA 1-5 [facility] Epithelial Cells 0-5 [facility] Bacteria UA Occasional [facility] Casts NEG [facility] Crystals POS [facility] Amorphous 1+ [facility] Trichomonas NEG [facility] Yeast, UA NEG [facility] Mucus Urine 2+ [facility] 05/09/1998 Narrative [facility] - 05/09/1998 12:00 AM SOLUTION COORDINATOR This order was created through External Result Entry Olena Lea MD LAB - URINALYSIS ORD ERABLES [facility] Care Teams Gis Engineer Relationship Specialty Start Date End Date Renzo Mishra MD [address] [place] [phone] PCP - General 02/12/19
[2024-06-30 08:26] VITALS: BP 147/61; PULSE 64; RESP 20; TEMP 36.7; O2SAT 100
--- NOTE | 2024-06-30 08:44 | ED.GENADULT ---
HPI - General Adult General Chief complaint: Upper Respiratory Infection Stated complaint: facial swelling, can't hear Source: patient Mode of arrival: ambulatory Limitations: no limitations History of Present Illness HPI narrative: Patient presents for evaluation of sick symptoms since yesterday. Symptoms include bilateral otalgia, sinus congestion, sore throat, fever and chills. No cough, SOB, nausea or vomiting. He has chronic diarrhea 2/2 cirrhosis of the liver. He has a history of recurrent otitis media, which typically responds well to augmentin. He has family members who have had influenza B and pneumonia. He does not smoke. Related Data Home Medications ?Medication ?Instructions ?Recorded ?Confirmed ?Last Taken ?Type albuterol sulfate 90 mcg/actuation 2 puff inhalation QID PRN Dyspnea 03/19/20 03/19/20 Unknown History aerosol inhaler (ProAir HFA) meloxicam 7.5 mg tablet 7.5 mg PO DAILY 03/19/20 03/19/20 Unknown History omeprazole 40 mg capsule,delayed 40 mg PO DAILY 03/19/20 03/19/20 Unknown History release ranitidine HCl 150 mg tablet 150 mg PO BID 03/19/20 03/19/20 Unknown History tramadol 50 mg tablet 50 mg PO TID 03/19/20 03/19/20 Unknown History lisinopril 20 mg tablet mg 06/30/24 Unknown History nadolol 20 mg tablet mg 06/30/24 Unknown History rifaximin 550 mg tablet (Xifaxan) mg 06/30/24 Unknown History spironolactone 25 mg tablet mg 06/30/24 Unknown History Allergies Allergy/AdvReac Type Severity Reaction Status Date / Time banana Allergy Anaphylaxis Verified 03/19/20 16:57 morphine Allergy Swelling Verified 03/19/20 16:57 Review of Systems Review of Systems: CONSTITUTIONAL: Reports fever and chills. EYES: Denies visual changes, redness, or discharge. ENT: Reports sinus drainage, sore throat bilateral otalgia CARDIOVASCULAR: Denies chest pain, palpitations, or edema. RESPIRATORY: Denies cough or dyspnea. GASTROINTESTINAL: Reports chronic diarrhea, unchanged. Denies abdominal pain, nausea, vomiting GENITOURINARY: Denies dysuria or hematuria. SKIN: Denies rash or itching. MUSCULOSKELETAL: Denies back pain, joint pain, or myalgia. NEUROLOGIC: Denies headache, numbness, dizziness, or weakness. PSYCHIATRIC: Denies anxiety or depression. COUNT INCLUDES [facility] Past Medical History Medical History Cirrhosis of liver Bronchitis non alcoholic GERD (gastroesophageal reflux disease) Surgical History Surgical History History of cholecystectomy History of tonsillectomy Family History Family History Mother Family history non-contributory Social History Social History Smoking status: Never smoker Alcohol intake: never Substance use: never Living arrangements: with family Gender identity (if verbalized by the patient): Male Exam Narrative: GENERAL: Well-appearing, well-nourished, and in no acute distress. HEAD: Normocephalic, atraumatic. EYES: PERRLA and EOMI. ENT: Nares clear, no rhinorrhea or epistaxis. Mucous membranes moist. Oropharynx without tonsillar hypertrophy exudate or other lesions. Bilateral TMs are erythematous NECK: Supple. No adenopathy or masses. No carotid bruits or JVD CHEST: Clear to auscultation. No respiratory distress. No wheezes rales or rhonchi HEART: Regular rate and rhythm. No murmur heard. Normal peripheral pulses. ABDOMEN: Soft, nontender, nondistended, normal active bowel sounds. EXTREMITIES: Normal range of motion. No edema. SKIN: Warm, dry, no rash. NEURO: No focal deficits. Alert and oriented x3. PSYCH: Normal mood and affect. Course Course Emergency Course: This is a 54-year-old male who presented for evaluation of sick symptoms. He has evidence of otitis media on exam. indicates his current symptoms are consistent with those previously experienced with otitis media in the past. Will discharge with Augmentin. Increase hydration. [id number] agents for symptom management. Follow up with primary provider. Go to the ER for worsening symptoms. Patient in agreement with plan of care. Level of Care: Express Care Visit Vital Signs Vital signs: Vital Signs Temperature 36.7 C 06/30/24 08:26 Pulse Rate 64 06/30/24 08:26 Respiratory Rate 20 06/30/24 08:26 Blood Pressure 147/61 H 06/30/24 08:26 Pulse Oximetry 100 06/30/24 08:26 Oxygen Delivery Room Air 06/30/24 08:26 Temperature 36.7 C 06/30/24 08:26 Pulse Rate 64 06/30/24 08:26 Respiratory Rate 20 06/30/24 08:26 Blood Pressure 147/61 H 06/30/24 08:26 Pulse Oximetry 100 06/30/24 08:26 Oxygen Delivery Room Air 06/30/24 08:26 Medical Decision Making Vital Signs Vital Signs: Vital Signs Temperature 36.7 C 06/30/24 08:26 Pulse Rate 64 06/30/24 08:26 Respiratory Rate 20 06/30/24 08:26 Blood Pressure 147/61 H 06/30/24 08:26 Pulse Oximetry 100 06/30/24 08:26 Oxygen Delivery Room Air 06/30/24 08:26 Temperature 36.7 C 06/30/24 08:26 Pulse Rate 64 06/30/24 08:26 Respiratory Rate 20 06/30/24 08:26 Blood Pressure 147/61 H 06/30/24 08:26 Pulse Oximetry 100 06/30/24 08:26 Oxygen Delivery Room Air 06/30/24 08:26 Discharge Plan Discharge Clinical Impression: Otitis media Patient Disposition: Home, Self-Care Condition: Stable Instructions: Antibiotic Form, Ear Infection (GEN) Patient Language: Latvian Prescriptions: New amoxicillin-pot clavulanate 875-125 mg tablet 1 tablet PO Q12H Qty: 20 0RF No Action tramadol 50 mg Tablet 50 mg PO TID ranitidine HCl 150 mg Tablet 150 mg PO BID omeprazole 40 mg Capsule,Delayed Release(Dr/Ec) 40 mg PO DAILY meloxicam 7.5 mg Tablet 7.5 mg PO DAILY albuterol sulfate [ProAir HFA] 90 mcg/actuation Hfa Aerosol Inhaler 2 puff INHALATION QID PRN (Reason: Dyspnea) lisinopril 20 mg tablet spironolactone 25 mg tablet nadolol 20 mg tablet Xifaxan 550 mg tablet Follow-up/Referrals: Tad,MD Renzo [Primary Care Provider] - Time of Disposition: 08:39
== END 2024-06-30 08:43 | disposition home or self-care (01) ==
PROVIDERS: Emergency Provider Nurse Practitioner; PCP Family Medicine
DX: H66.93 Otitis media, unspecified, bilateral (principal); K74.60 Unspecified cirrhosis of liver; K21.9 Gastro-esophageal reflux disease without esophagitis
CPT/HCPCS: 99213; G0463

== ENCOUNTER 2024-11-01 10:02 | Emergency (ER) | payer MEDICARE, SELFPAY ==
[2024-11-01 10:17] VITALS: BP 145/65; PULSE 62; RESP 16; TEMP 36.6; O2SAT 100
--- NOTE | 2024-11-01 10:42 | ED_ITS ---
HPI - URI/Sore Throat General Chief Complaint: Upper Respiratory Infection Stated Complaint: Sinus Problem/Cough/Chest Congestion Time Seen by Provider: 11/01/24 10:25 Source: patient and RN notes reviewed Mode of arrival: ambulatory Limitations: no limitations History of Present Illness HPI Narrative: 54-year-old male presents [facility] complaining of upper respiratory symptoms for over a week. Patient stated symptoms started with congestion, dry cough, runny nose, sore throat. Patient states symptoms got better after a couple days. Then his symptoms suddenly got worse he states. Patient reports worse nesha sinus pressure, mucopurulent nasal drainage, worsening cough. Patient denies any fevers, body aches, chills, nausea, vomiting, chest pain, shortness of breath. Patient has been taking [id number] medication without any relief. Patient has a history of liver failure and cirrhosis, and is hearing impaired. Related Data Home Medications ?Medication ?Instructions ?Recorded ?Confirmed ?Last Taken ?Type albuterol sulfate 90 mcg/actuation 2 puff inhalation QID PRN Dyspnea 03/19/20 03/19/20 Unknown History aerosol inhaler (ProAir HFA) omeprazole 40 mg capsule,delayed 40 mg PO DAILY 03/19/20 03/19/20 Unknown History release ranitidine HCl 150 mg tablet 150 mg PO BID 03/19/20 03/19/20 Unknown History tramadol 50 mg tablet 50 mg PO TID 03/19/20 03/19/20 Unknown History lisinopril 20 mg tablet mg 06/30/24 Unknown History nadolol 20 mg tablet mg 06/30/24 Unknown History rifaximin 550 mg tablet (Xifaxan) mg 06/30/24 Unknown History spironolactone 50 mg tablet mg 11/01/24 Unknown History Allergies Allergy/AdvReac Type Severity Reaction Status Date / Time banana Allergy Anaphylaxis Verified 11/01/24 10:16 morphine Allergy Swelling Verified 11/01/24 10:16 Review of Systems Review of Systems: CONSTITUTIONAL: Denies fever, chills, body aches, or sweats. EYES: Denies visual changes, redness, or discharge. ENT: Positive for rhinorrhea, congestion, sore throat. Negative for otalgia. CARDIOVASCULAR: Denies chest pain, palpitations, or edema. RESPIRATORY: Positive for cough. Negative for dyspnea or wheezing. GASTROINTESTINAL: Denies abdominal pain, nausea, vomiting, or diarrhea. GENITOURINARY: Denies dysuria or hematuria. SKIN: Denies rash, jaundice, or itching. MUSCULOSKELETAL: Denies back pain, joint pain, or myalgia. NEUROLOGIC: Denies headache, numbness, or weakness. PSYCHIATRIC: Denies anxiety or depression. All other systems reviewed are negative, except as documented in HPI. [facility] Past Medical History Medical History Cirrhosis of liver Bronchitis non alcoholic GERD (gastroesophageal reflux disease) Surgical History Surgical History History of cholecystectomy History of tonsillectomy Family History Family History Mother Family history non-contributory Social History Social History Smoking status: Never smoker Alcohol intake: never Substance use: never Living arrangements: with family Gender identity (if verbalized by the patient): Male Comments At the time of my signature, I reviewed and agree with the nursing past medical, surgical, social, and family history. There is no relevant family history pertinent to the patient complaint. Exam Narrative: GENERAL: This is a well-nourished, well-developed adult, in no apparent distress. They are non ill-appearing, nontoxic appearing. HEAD: normocephalic, atraumatic. EYES: Sclera clear/white. Vision is grossly intact. Conjunctiva normal bilaterally. Extraocular movements intact. EARS: External ears normal, auditory canals clear and without drainage, TMs with bilateral effusions, without erythema or perforation. Hearing grossly intact. NOSE: External nose normal with no obvious nasal discharge, nasal turbinates erythematous with mucopurulent drainage, no rhinorrhea. Maxillary sinus tenderness to palpation. THROAT: Mucous membranes moist, posterior pharynx edematous without redness, no exudate. Uvula is midline. Postnasal drip present. NECK: Neck supple, non-tender without lymphadenopathy, masses or thyromegaly. CARDIOVASCULAR: Regular rate and rhythm without murmurs, gallops, or rubs. RESPIRATORY: Clear to auscultation. Breath sounds equal bilaterally. No wheezes, rales, or rhonchi. SKIN: warm, Dry, intact with no suspicious lesions or rash, good texture and turgor. No jaundice. NEURO: awake, alert, and oriented to person, place and time. There were no obvious focal neurologic abnormalities. EXTREMITIES: No joint tenderness, effusion, or edema noted. BACK: Nontender without deformity. Course Course Emergency Course: Portions of this record may have been created with voice recognition software Level of Care: Express Care Visit Vital Signs Vital signs: Vital Signs Temperature 97.9 F 11/01/24 10:17 Pulse Rate 62 11/01/24 10:17 Respiratory Rate 16 11/01/24 10:17 Blood Pressure 145/65 H 11/01/24 10:17 Pulse Oximetry 100 11/01/24 10:17 Oxygen Delivery Room Air 11/01/24 10:17 Temperature 97.9 F 11/01/24 10:17 Pulse Rate 62 11/01/24 10:17 Respiratory Rate 16 11/01/24 10:17 Blood Pressure 145/65 H 11/01/24 10:17 Pulse Oximetry 100 11/01/24 10:17 Oxygen Delivery Room Air 11/01/24 10:17 MDM - URI/Sore Throat MDM Narrative Medical decision making narrative: Rapid strep negative. Given patient's biphasic symptoms is likely you developed a bacterial sinusitis. Will treat empirically with Augmentin. Discussed physical exam findings. Advised supportive measures and signs/symptoms to go to the ER. Pt is appropriate for outpt treatment and f/u. Differential Diagnosis Differential diagnosis: Likely upper respiratory infection, otitis media, sinusitis, viral infection and pharyngitis Discharge Plan Discharge Clinical Impression: Sinusitis Qualifiers: Sinusitis location: unspecified location Chronicity: acute Recurrence: non- recurrent Qualified Code(s): J01.90 - Acute sinusitis, unspecified Patient Disposition: Home Condition: Stable Instructions: Antibiotic Form, Sinusitis (ED) Additional Instructions: Your rapid strep swab was negative today at [facility]. You will be notified in a few days if the culture comes back positive for strep. Is likely of a bacterial sinus infection. Take the antibiotics as directed and complete the course even if you start to feel better. You may use a Neti pot/sinus rinse with saline 3 times a day with lukewarm distilled water You may take Tylenol or ibuprofen for pain or fevers if allowed by your primary care provider. Use a humidifier or vaporizer at night. Drink plenty of water. 8-10 glasses per day. Use flonase 2 times per day for 5 days then as needed Take mucinex 2 times per day and be sure to take with 8oz of water. Follow up with Primary provider in 3-5 days Please go to the ER if he develops any difficulty breathing, worsening symptoms, or any other concerns Patient Language: Upper Sorbian Prescriptions: New amoxicillin-pot clavulanate 875-125 mg tablet 1 tablet PO Q12H 7 Days Qty: 14 0RF No Action tramadol 50 mg Tablet 50 mg PO TID ranitidine HCl 150 mg Tablet 150 mg PO BID omeprazole 40 mg Capsule,Delayed Release(Dr/Ec) 40 mg PO DAILY albuterol sulfate [ProAir HFA] 90 mcg/actuation Hfa Aerosol Inhaler 2 puff INHALATION QID PRN (Reason: Dyspnea) spironolactone 50 mg tablet lisinopril 20 mg tablet nadolol 20 mg tablet Xifaxan 550 mg tablet Follow-up/Referrals: Tad,MD Renzo [Primary Care Provider] - Time of Disposition: 10:36
[2024-11-01 11:57] LABS: EDSTREPNEGPOS1 Negative (Negative)
== END 2024-11-01 10:43 | disposition home or self-care (01) ==
PROVIDERS: PCP Family Medicine
DX: J01.90 Acute sinusitis, unspecified (principal); K74.60 Unspecified cirrhosis of liver; K21.9 Gastro-esophageal reflux disease without esophagitis
CPT/HCPCS: 87081; 87880; 99213; G0463